=== PATIENT | female | born 1955 | race Caucasian/White ===

== ENCOUNTER 2016-08-09 09:44 | Day surgery (SDC) | payer MEDICARE, OTHER ==
[~2016-08-09 09:44] MED LIST: DIPRIVAN 200 MG/20 ML IV ONE; Kenalog-40 IM ONE; Sensorcaine 0.25% 10 ML IJ ONE
[2016-08-09] MEDS ORDERED: Lactated Ringers 1,000 ML IV SCH (10:30)
[2016-08-09 11:02] VITALS: BP 133/84; PULSE 64; O2SAT 98
--- NOTE | 2016-08-09 14:06 | XRAY ---
Indication: Right L3-L5 medial branch block. Intraoperative fluoroscopy was provided for 8 seconds. A single digital spot image submitted for interpretation demonstrates 4 posterior spinal needles with the tips projecting just lateral to the right L3-S1 facets. Correlate with intraoperative findings/report.
--- NOTE | 2016-08-09 14:55 | XRAY ---
8 seconds of fluoroscopy time in surgery for right MBB L3-5.
== END 2016-08-09 12:30 | disposition home or self-care (01) ==
LOC: SDC-PAIN 09:44
PROVIDERS: ATTEND Pain Medicine Interventional Pain Medicine
DX: M47.816 Spondylosis without myelopathy or radiculopathy, lumbar region (principal); M46.1 Sacroiliitis, not elsewhere classified; M48.06 Spinal stenosis, lumbar region; M51.36 Other intervertebral disc degeneration, lumbar region; Z79.891 Long term (current) use of opiate analgesic
CPT/HCPCS: 01936; 64493; 64494; 64495; 72020; 77003; J2704; J3301

== ENCOUNTER 2016-11-15 12:42 | Day surgery (SDC) | payer MEDICARE, OTHER ==
[2012-04-05 15:46] VITALS: BP 100/51
[~2016-11-15 12:42] MED LIST changes: +Lactated Ringers 1,000 ML IV ONE
--- NOTE | 2016-11-15 17:19 | XRAY ---
20 seconds fluoroscopy time in surgery for right side L3-5 MBB.
--- NOTE | 2016-11-17 02:44 | XRAY ---
Indication: Right L2-L5 MBB. Intraoperative fluoroscopy was provided for 20 seconds. Single digital spot image submitted for interpretation demonstrates 4 posterior spinal needles with the tips projected over the expected course of the right L2-L5 nerve roots. Correlate with intraoperative findings/report. There is also moderate rotary levoscoliosis within the lower lumbar spine at L4-L5.
== END 2016-11-15 14:30 | disposition home or self-care (01) ==
LOC: SDC-PAIN 12:42
PROVIDERS: ATTEND Pain Medicine Interventional Pain Medicine
DX: M51.36 Other intervertebral disc degeneration, lumbar region (principal); M48.06 Spinal stenosis, lumbar region; M46.1 Sacroiliitis, not elsewhere classified; M47.816 Spondylosis without myelopathy or radiculopathy, lumbar region; Z79.891 Long term (current) use of opiate analgesic
CPT/HCPCS: 64493; 64494; 64495; 72020; 77003; J2704; J3301

== ENCOUNTER 2016-12-15 05:57 | Day surgery (SDC) | payer MEDICARE, OTHER ==
[2016-12-15] MEDS ORDERED: Lactated Ringers 1,000 ML IV ONE (07:14)
[2016-12-15] MEDS ORDERED: Lactated Ringers 1,000 ML IV SCH (07:30)
[2016-12-15] MEDS ORDERED: DIPRIVAN 200 MG/20 ML IV ONE (09:30)
[2016-12-15] MEDS ORDERED: Ketamine HCl 50 MG/ML IV ONE (09:30)
--- NOTE | 2016-12-15 09:39 | OP ---
SURGERY DATE/TIME: 12/15/2016 0750 PREOPERATIVE DIAGNOSIS: Chronic diarrhea. POSTOPERATIVE DIAGNOSES: 1) Gastric polyp. 2) Moderate gastritis. 3) Sigmoid diverticulosis. PROCEDURES: 1) EGD with biopsy. 2) Colonoscopy. SURGEON: Dr. Benítez. ANESTHESIA: MAC. Medications given by anesthesia department. HISTORY: The patient is a 61 year-old white female presenting now for complaints of one month worth of diarrhea. The patient reports having taken new medication for arthritis and having had some epigastric pain as well. The patient is felt to need to have endoscopic evaluation. She was appraised of the risks of the procedure including the risk of perforation, phlebitis, untoward reaction to medication, bleeding and missed lesions. The patient verbalized her understanding and desired to have the procedure performed. DESCRIPTION OF PROCEDURE: The patient was given the medications by the anesthesia department. She had continuous pulse oximetry, ECG monitoring, intermittent blood pressure monitoring, and tidal CO2 monitoring during the examination. She was placed in the left lateral decubitus position. A bite block was placed and the flexible Olympus gastroscope was used to intubate the oropharynx. The esophagus was easily entered which appeared to be normal throughout its length. The stomach was entered where normal gastric rugal folds were seen and these distended nicely with insufflation of air. There was noted to be small gastric polyps. These were biopsied to rule out any neoplastic change. The scope was passed along the greater curvature of the stomach to the antrum which was also biopsied to rule out the presence of Helicobacter pylori-type organisms. The pylorus is encountered and intubated. The duodenum inspected and found to be normal. The scope is withdrawn towards the stomach. Again, a retroflex view was obtained of the lesser curvature, fundus and cardia regions of the stomach. The scope was then removed from the patient. Next, a digital rectal examination was performed and revealed normal anal sphincter tone and no masses. The flexible Olympus pediatric colonoscope was used to intubate the rectum. A view of the colon was developed sequentially to the cecum. Upon insertion and withdrawal, including a retroflex view in the rectum, there was noted sigmoid diverticula which were mild to moderate in nature and no other mucosal lesions being encountered. The scope was removed from the patient who tolerated the procedure well and was sent back to OP recovery in good condition. The prep was noted to be fair.
[2016-12-15 10:02] VITALS: O2SAT 97
[2016-12-15 10:04] VITALS: BP 142/91; PULSE 71
== END 2016-12-15 09:45 | disposition home or self-care (01) ==
LOC: SDC 05:57
PROVIDERS: ATTEND Family Medicine
PROC: 0DB68ZX Excision of Stomach, Via Natural or Artificial Opening Endoscopic, Diagnostic (ICD-10-PCS; principal; 2016-12-15)
PROC: 0DB78ZX Excision of Stomach, Pylorus, Via Natural or Artificial Opening Endoscopic, Diagnostic (ICD-10-PCS; 2016-12-15)
DX: K31.7 Polyp of stomach and duodenum (principal); K29.70 Gastritis, unspecified, without bleeding; K57.30 Diverticulosis of large intestine without perforation or abscess without bleeding
CPT/HCPCS: 00740; 00810; 36415; 88305; J2704

== ENCOUNTER 2019-04-14 05:54 | Day surgery (SDC) | payer MEDICARE, OTHER ==
[2019-04-14] MEDS ORDERED: Lactated Ringers 1,000 ML IV SCH (07:00)
[2019-04-14] MEDS ORDERED: DIPRIVAN 200 MG/20 ML IV ONE ×2 (08:06→08:07)
[2019-04-14] MEDS ORDERED: Ketamine HCl 50 MG/ML ONE (08:07)
[2019-04-14] MEDS ORDERED: Lactated Ringers 1,000 ML IV ONE (08:13)
[2019-04-14 09:21] VITALS: BP 158/87; PULSE 66; O2SAT 99
--- NOTE | 2019-04-14 12:58 | OP ---
SURGERY DATE/TIME: 04/14/2019 0750 PREOPERATIVE DIAGNOSIS: History of colon polyps. POSTOPERATIVE DIAGNOSIS: Sigmoid diverticulosis otherwise normal colon. PROCEDURE: Colonoscopy. SURGEON: Dr. Benítez. ANESTHESIA: MAC. Medications given by anesthesia department. HISTORY: The patient is a 63 year-old white female presents now for repeat colonoscopy. Previous history of polyps. The patient was reappraised of the risks of the procedure including the risk of perforation, phlebitis, untoward reaction to medication, bleeding and missed lesions. The patient verbalized her understanding and desired to have the procedure performed. DESCRIPTION OF PROCEDURE: The patient was given the medications by the anesthesia department. She had continuous pulse oximetry, ECG monitoring, intermittent blood pressure monitoring and tidal CO2 monitoring during the examination. She was placed in the left lateral decubitus position. A digital rectal examination was performed and revealed normal anal sphincter tone and no masses. The flexible Olympus pediatric colonoscope was used to intubate the rectum. A view of the colon was developed sequentially to the cecum. Upon insertion and withdrawal, including a retroflex view in the rectum, there was noted to be sigmoid diverticulosis otherwise no mucosal lesions were encountered. The scope was removed from the patient who tolerated the procedure well and was sent back to OP recovery in good condition. The prep was noted to be fair to good.
== END 2019-04-14 09:30 | disposition home or self-care (01) ==
LOC: SDC 05:54
PROVIDERS: ATTEND Family Medicine
DX: Z09 Encounter for follow-up examination after completed treatment for conditions other than malignant neoplasm (principal); Z86.010 Personal history of colon polyps; K57.30 Diverticulosis of large intestine without perforation or abscess without bleeding
CPT/HCPCS: J2704

== ENCOUNTER 2019-05-24 17:18 | Emergency (ER) | payer MEDICARE, OTHER ==
[2019-05-24] MEDS ORDERED: ELIQUIS 2.5 MG TABLET PO STA (17:39)
--- NOTE | 2019-05-24 17:39 | ERPHSYRPT ---
- History of Present Illness Time Seen by Provider: 05/24/19 17:35 Source: patient Physician History: patient was told that she has pulmonary embolism by CT scan. She was scheduled for laparoscopic intervention but due to abnormal CT scan it was cancelled so She got worried and came to ER. C/o Mild acid reflux Timing/Duration: today Associated Symptoms: denies symptoms Allergies/Adverse Reactions: ceftriaxone sodium [From Rocephin] Allergy (Severe, Verified 12/15/16 06:30) resp arrest Cephalosporins Allergy (Severe, Verified 12/15/16 06:30) resp arrest latex Allergy (Verified 12/15/16 06:30) Home Medications: Montelukast Sodium [Singulair] 10 mg PO DAILY 05/23/15 [History] Potassium Chloride 10 Meq Tab* [Klor Con 10 MEQ] 10 meq PO DAILY 05/23/15 [ History] Albuterol 8 gm Mdi Hfa [Ventolin Hfa MDI] 2 puffs IH UD 05/18/16 [History] Cyanocobalamin 1000 Mcg/ml [Cyanocobalamin B-12 1000 MCG/ML] 1,000 mcg SQ UD 05/18/16 [History] Estrogen,Con/M-Progest Acet [Prempro 0.625-5 mg Tablet] 0.625 mg PO DAILY [History] Levocetirizine Dihydrochloride 5 mg PO UD 05/18/16 [History] Meclizine HCl 25 mg [Antivert 25 mg] 25 mg PO UD 05/18/16 [History] PANTOPRAZOLE 40 mg Tablet [Protonix 40MG Tablet] 40 mg PO DAILY 05/18/16 [ History] Lisinopril 20 mg [Zestril 20 MG] 20 mg PO DAILY 12/13/16 [History] Alendronate Sodium 70 mg [Fosamax 70 MG] 70 mg PO WEEKLY 04/10/19 [History ] Benzonatate [Tessalon Perle] 100 mg PO DAILY 04/10/19 [History] Cromolyn Sodium 10 ml OP QID 04/10/19 [History] Desoximetasone 15 gm TP BID 04/10/19 [History] Dextromethorphan Polistirex [Delsym] 30 mg PO BIDPRN PRN 04/10/19 [History] Diclofenac Sodium Gel [Voltaren GEL] 100 gm TP QID 04/10/19 [History] Diphenoxylate HCl/Atropine [Lomotil 2.5-0.025 mg Tablet] 1 each PO QIDPRN PRN [History] Fluticasone/Vilanterol [Breo Ellipta 200-25 Mcg INH] 1 each IH DAILY 04/10/19 [ History] Furosemide 40 mg [Lasix 40 MG] 40 mg PO DAILY 04/10/19 [History] Gabapentin [Neurontin] 300 mg PO TID 04/10/19 [History] Hydrocodone Bit/Acetaminophen [Hydrocodon-Acetaminophn 10-325] 1 each PO Q4HPRN PRN 04/10/19 [History] Lactase [Lactaid Fast Act] 9,000 unit PO AC 04/10/19 [History] Lidocaine [Lidoderm] 1 each TP UD 04/10/19 [History] Meloxicam [Mobic] 15 mg PO DAILY 04/10/19 [History] Mometasone Furoate [Nasonex] 17 gm NS DAILY 04/10/19 [History] Multivitamin with Iron [Multivitamins with Iron] 1 each PO DAILY 04/10/19 [ History] Multivitamin/Iron/Folic Acid [Cerovite Advanced Form Tab] 1 each PO DAILY [History] Mupirocin [Bactroban OINTMENT] 15 gm TP TID 04/10/19 [History] Ondansetron [Ondansetron Odt] 4 mg PO Q8HPRN PRN 04/10/19 [History] Pravastatin Sodium [Pravachol] 40 mg PO DAILY 04/10/19 [History] Rizatriptan Benzoate [Rizatriptan] 10 mg PO UD 04/10/19 [History] Tizanidine HCl 4 mg [Zanaflex 4 MG] 4 mg PO TID 04/10/19 [History] Topiramate 25 mg [Topamax 25 MG] 25 mg PO UD 04/10/19 [History] Triamcinolone 0.025% Cream [Triamcinolone Acetonide] 453.6 gm TP BID 04/10/19 [ History] Venlafaxine HCl ER 75 mg [Effexor XR 75 MG] 112.5 mg PO DAILY 04/10/19 [ History] Hx Tetanus, Diphtheria Vaccination/Date Given: Yes Hx Influenza Vaccination/Date Given: Yes Hx Pneumococcal Vaccination/Date Given: No - Review of Systems Constitutional: No Fever, No Chills Eyes: No Symptoms Ears, Nose, & Throat: No Symptoms Respiratory: No Cough, No Dyspnea Cardiac: No Chest Pain, No Edema, No Syncope Abdominal/Gastrointestinal: No Abdominal Pain, No Nausea, No Vomiting, No Diarrhea Genitourinary Symptoms: No Dysuria Musculoskeletal: No Back Pain, No Neck Pain Skin: No Rash Neurological: No Dizziness, No Focal Weakness, No Sensory Changes Psychological: No Symptoms Endocrine: No Symptoms All Other Systems: Reviewed and Negative - Past Medical History Pertinent Past Medical History: Yes Neurological History: No Pertinent History ENT History: No Pertinent History Cardiac History: Hypertension Respiratory History: Asthma, Bronchitis Endocrine Medical History: No Pertinent History Musculoskeletal History: Arthritis, Rheumatoid Arthritis GI Medical History: GERD History: No Pertinent History Psycho-Social History: Other Female Reproductive Disorders: No Pertinent History Other Medical History: pt states she has PTSD - Past Surgical History Past Surgical History: Yes Neuro Surgical History: No Pertinent History Cardiac: No Pertinent History Respiratory: Other Gastrointestinal: No Pertinent History Genitourinary: No Pertinent History Musculoskeletal: Other Female Surgical History: Tubal Ligation Other Surgical History: pt has had bilateral foot correction surgery. rib surgery and skin cancer removal. - Social History Smoking Status: Never smoker Exposure to second hand smoke: No Drug Use: none Patient Lives Alone: No - Nursing Vital Signs Nursing Vital Signs: Initial Vital Signs Temperature 98.1 F 05/24/19 17:27 Pulse Rate 69 05/24/19 17:27 Respiratory Rate 20 05/24/19 17:27 Blood Pressure 123/81 05/24/19 17:27 O2 Sat by Pulse Oximetry 97 05/24/19 17:27 Pain Scale Pain Intensity 3 - Physical Exam General Appearance: no apparent distress, alert Eye Exam: PERRL/EOMI, eyes nml inspection Ears, Nose, Throat Exam: normal ENT inspection, TMs normal, pharynx normal, moist mucous membranes Neck Exam: normal inspection, non-tender, supple, full range of motion Respiratory Exam: normal breath sounds, lungs clear, No respiratory distress Cardiovascular Exam: regular rate/rhythm, normal heart sounds, normal peripheral pulses Gastrointestinal/Abdomen Exam: soft, normal bowel sounds, tenderness ( epigastric area), No mass Back Exam: normal inspection, normal range of motion, No CVA tenderness, No vertebral tenderness Extremity Exam: normal inspection, normal range of motion, pelvis stable Neurologic Exam: alert, oriented x 3, cooperative, normal mood/affect, nml cerebellar function, nml station & gait, sensation nml, No motor deficits Skin Exam: normal color, warm, dry, No rash Lymphatic Exam: No adenopathy - Course Nursing assessment & vital signs reviewed: Yes Ordered Tests: Medication Summary Generic Name Dose Route Start Last Admin Trade Name Freq PRN Reason Stop Dose Admin Pantoprazole Sodium 40 mg 05/24/19 17:46 Protonix 40mg Tablet PO 05/24/19 17:47 STAT ONE Discontinued Medications Generic Name Dose Route Start Last Admin Trade Name Freq PRN Reason Stop Dose Admin Apixaban 5 mg 05/24/19 17:39 Eliquis 2.5 Mg Tablet PO 05/24/19 17:40 BID STA Lab/Rad Data: CT chest Impression: 1. Although this study was not performed for pulmonary emboli, there appears to be a small round defect within the proximal right lower lobe pulmonary artery as well as some additional subtle defects within the right lower lobe pulmonary arteries suggestive of pulmonary emboli. 2. Prominent irregular, relatively oval shaped, complex mass occupying much of the right lobe of the thyroid gland. Further evaluation with a thyroid ultrasound is recommended. 3. Old healed granulomatous disease. No suspicious soft tissue lung nodularity or infiltrates are noted. 4. Several old healed fracture deformities are seen involving the anterior lateral aspect of the right mid rib cage. These are evidently posttraumatic in etiology. Correlate clinically. 5. Moderate upper lumbar rotary dextroscoliosis centered at L2. Some other skeletal findings are seen, as discussed above. Reported by: JULISA SYED - Progress Progress: improved Counseled pt/family regarding: diagnosis, need for follow-up, rad results - Departure Departure Disposition: Home Clinical Impression: Pulmonary embolism Qualifiers: Pulmonary embolism type: unspecified Chronicity: unspecified Acute cor pulmonale presence: without acute cor pulmonale Qualified Code(s): I26.99 - Other pulmonary embolism without acute cor pulmonale GERD (gastroesophageal reflux disease) Qualifiers: Esophagitis presence: with esophagitis Qualified Code(s): K21.0 - Gastro- esophageal reflux disease with esophagitis Condition: Stable Critical Care Time: Yes Critical Care Time(excluding separately billable procedures): Critical 30-74 mins Referrals: KIAN PEDRO [Primary Care Provider] - Instructions: Pulmonary Embolism (Blood Clot in the Lungs), Acid Reflux ( Gastroesophageal Reflux Disease), Adult (DC) Additional Instructions: Discharge/Care Plan PEGGY SYED was seen on 05/24/19 in the Emergency Room. The patient was counseled regarding Diagnosis,Lab results, Imaging studies, need for follow up and when to return to the Emergency Room. Prescriptions given: Discharge Note I have spoken with the patient and/or caregivers. I have explained the patient' s condition, diagnosis and treatment plan based on the information available to me at this time. I have answered the patient's and/or caregiver's questions and addressed any concerns. The patient and/or caregivers have as good understanding of the patient's diagnosis, condition and treatment plan as can be expected at this point. The vital signs have been stable. The patient's condition is stable and appropriate for discharge from the emergency department. The patient will pursue further outpatient evaluation with the primary care physician or other designated or consulting physician as outlined in the discharge instructions. The patient and/or caregivers are agreeable to this plan of care and follow-up instructions have been explained in detail. The patient and/or caregivers have received these instruction. The patient/and or caregivers are aware that any significant change in condition or worsening of symptoms should prompt an immediate return to this or the closest emergency department or call 911. PEGGY SYED was seen on 05/24/19 n the Emergency Room. At that time you were treated for an emergent condition, during your visit Laboratory, Radiology and/or other procedures may have been ordered. It is very important that you follow-up with your Primary Care Physician KIAN PEDRO within the next 24-48 hours to review your Emergency Room visit and the final results of testing that was ordered. Some test results such as Urine Cultures, Blood Cultures, and other cultures if ordered will not be finalized for 24-48 hours. If you do not have a Primary Care Provider please call the medical records department at [phone] ext [phone] to obtain a copy of your results or you may sign into our patient portal to obtain these results by visiting us @ [email or web address] and completing the following steps: 1. Click on the Patient Portal link 2. Click the Patient Self Enrollment Link to complete the enrollment form and entering your 3. Once the enrollment form is completed you will receive an email with a temporary ID and password at the email address you provided. 4. Next choose a user name and password. Your user name must be at least 4 characters long and your password must be at least 4 characters long. 5. Choose a security question from the list and provide your answer to the question. If you already have signed into the Health Portal you may access your Health Care Information 08/01 by the following steps: 1. Login to our website @ [email or web address] 2. Enter your original user name and password. FAQS The [facility] Health Portal is an online tool that contains your Lab Results, Radiology Reports, Visit History, Discharge Instructions and Health Summary Lab and Radiology Results will not be available for 72 hours on the portal. The Portal is a secure site, passwords are encryted and URLs are re-written so they cannot be copied and pasted. You and authorized family members are the only ones who can access your Portal. Also there is a timeout feature that protects your information if you leave the Portal page open. If you have technical difficulty please use the Contact Us link on the page this will allow you to submit any questions you have regarding the Portal or you may contact the Medical Record Department at [phone] ext [phone]. Prescriptions: Apixaban [Eliquis] 5 mg PO BID #60 tablet PANTOPRAZOLE 40 mg Tablet [Protonix 40MG Tablet] 40 mg PO QPM #30 tab
[2019-05-24] MEDS ORDERED: Protonix 40MG Tablet PO ONE (17:46)
[2019-05-24] MEDS ORDERED: Protonix 40MG Tablet ONE (17:55)
[2019-05-24 17:57] VITALS: BP 125/82; PULSE 72; O2SAT 98
== END 2019-05-24 18:08 | disposition home or self-care (01) ==
LOC: ED 17:18
DX: I26.99 Other pulmonary embolism without acute cor pulmonale (principal); K21.0 Gastro-esophageal reflux disease with esophagitis; Z79.899 Other long term (current) drug therapy
CPT/HCPCS: 99283; 99291; A9270-GY

== ENCOUNTER 2019-07-23 16:43 | Inpatient (IN) | payer MEDICARE, OTHER ==
--- NOTE | 2019-07-23 16:50 | ERPHSYRPT ---
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 She has had worsening abdominal cramping and liquid black stools. Patient was given a prescription of Percocet which she has not been taking. She was also told to take 800 mg of ibuprofen 3-4 times a day. She has been taking this. She has been receiving Lovenox subcutaneous injections twice a day. Presents to the emergency room with abdominal pain and several, uncontrollable liquid black bowel movements. Has had associated vomiting as well Timing/Duration: day(s) (2) Quality: cramping Abdominal Pain Onset Location: generalized abdomen Pain Radiation: no radiation Severity of Pain-Max: moderate Severity of Pain-Current: moderate Modifying Factors: Improves With: vomiting Associated Symptoms: diarrhea, nausea, vomiting Previous symptoms: no prior history Allergies/Adverse Reactions: ceftriaxone sodium [From Rocephin] Allergy (Severe, Verified 12/15/16 06:30) resp arrest Cephalosporins Allergy (Severe, Verified 12/15/16 06:30) resp arrest latex Allergy (Verified 12/15/16 06:30) Home Medications: Montelukast Sodium [Singulair] 10 mg PO DAILY 05/23/15 [History] Albuterol 8 gm Mdi Hfa [Ventolin Hfa MDI] 2 puffs IH UD 05/18/16 [History] Cyanocobalamin 1000 Mcg/ml [Cyanocobalamin B-12 1000 MCG/ML] 1,000 mcg SQ UD 05/18/16 [History] Estrogen,Con/M-Progest Acet [Prempro 0.625-5 mg Tablet] 0.625 mg PO DAILY [History] Levocetirizine Dihydrochloride 5 mg PO UD 05/18/16 [History] Meclizine HCl 25 mg [Antivert 25 mg] 25 mg PO UD 05/18/16 [History] PANTOPRAZOLE 40 mg Tablet [Protonix 40MG Tablet] 40 mg PO DAILY 05/18/16 [ History] Lisinopril 20 mg [Zestril 20 MG] 20 mg PO DAILY 12/13/16 [History] Alendronate Sodium 70 mg [Fosamax 70 MG] 70 mg PO WEEKLY 04/10/19 [History ] Benzonatate [Tessalon Perle] 100 mg PO DAILY 04/10/19 [History] Cromolyn Sodium 10 ml OP QID 04/10/19 [History] Desoximetasone 15 gm TP BID 04/10/19 [History] Dextromethorphan Polistirex [Delsym] 30 mg PO BIDPRN PRN 04/10/19 [History] Diclofenac Sodium Gel [Voltaren GEL] 100 gm TP QID 04/10/19 [History] Diphenoxylate HCl/Atropine [Lomotil 2.5-0.025 mg Tablet] 1 each PO QIDPRN PRN [History] Fluticasone/Vilanterol [Breo Ellipta 200-25 Mcg INH] 1 each IH DAILY 04/10/19 [ History] Furosemide 40 mg [Lasix 40 MG] 40 mg PO DAILY 04/10/19 [History] Gabapentin [Neurontin] 300 mg PO TID 04/10/19 [History] Hydrocodone Bit/Acetaminophen [Hydrocodon-Acetaminophn 10-325] 1 each PO Q4HPRN PRN 04/10/19 [History] Lactase [Lactaid Fast Act] 9,000 unit PO AC 04/10/19 [History] Lidocaine [Lidoderm] 1 each TP UD 04/10/19 [History] Meloxicam [Mobic] 15 mg PO DAILY 04/10/19 [History] Mometasone Furoate [Nasonex] 17 gm NS DAILY 04/10/19 [History] Multivitamin with Iron [Multivitamins with Iron] 1 each PO DAILY 04/10/19 [ History] Multivitamin/Iron/Folic Acid [Cerovite Advanced Form Tab] 1 each PO DAILY [History] Mupirocin [Bactroban OINTMENT] 15 gm TP TID 04/10/19 [History] Ondansetron [Ondansetron Odt] 4 mg PO Q8HPRN PRN 04/10/19 [History] Pravastatin Sodium [Pravachol] 40 mg PO DAILY 04/10/19 [History] Rizatriptan Benzoate [Rizatriptan] 10 mg PO UD 04/10/19 [History] Tizanidine HCl 4 mg [Zanaflex 4 MG] 4 mg PO TID 04/10/19 [History] Topiramate 25 mg [Topamax 25 MG] 25 mg PO UD 04/10/19 [History] Triamcinolone 0.025% Cream [Triamcinolone Acetonide] 453.6 gm TP BID 04/10/19 [ History] Venlafaxine HCl ER 75 mg [Effexor XR 75 MG] 112.5 mg PO DAILY 04/10/19 [ History] Hx Tetanus, Diphtheria Vaccination/Date Given: Yes Hx Influenza Vaccination/Date Given: Yes Hx Pneumococcal Vaccination/Date Given: No - Review of Systems Constitutional: No Symptoms Eyes: No Symptoms Ears, Nose, & Throat: No Symptoms Respiratory: No Symptoms Cardiac: No Symptoms Abdominal/Gastrointestinal: Abdominal Pain, Nausea, Vomiting, Diarrhea Genitourinary Symptoms: No Symptoms Musculoskeletal: No Symptoms Skin: No Symptoms Neurological: No Symptoms Psychological: No Symptoms Endocrine: No Symptoms Hematologic/Lymphatic: No Symptoms Immunological/Allergic: No Symptoms All Other Systems: Reviewed and Negative - Past Medical History Pertinent Past Medical History: Yes Neurological History: No Pertinent History ENT History: No Pertinent History Cardiac History: Hypertension Respiratory History: Asthma, Bronchitis Endocrine Medical History: No Pertinent History Musculoskeletal History: Arthritis, Rheumatoid Arthritis GI Medical History: GERD History: No Pertinent History Psycho-Social History: Other Female Reproductive Disorders: No Pertinent History Other Medical History: pt states she has PTSD - Past Surgical History Past Surgical History: Yes Neuro Surgical History: No Pertinent History Cardiac: No Pertinent History Respiratory: Other Gastrointestinal: No Pertinent History Genitourinary: No Pertinent History Musculoskeletal: Other Female Surgical History: Tubal Ligation Other Surgical History: pt has had bilateral foot correction surgery. rib surgery and skin cancer removal. - Social History Smoking Status: Never smoker Exposure to second hand smoke: No Drug Use: none Patient Lives Alone: No - Nursing Vital Signs Nursing Vital Signs: Initial Vital Signs Temperature 98.1 F 02/05/20 16:43 Pulse Rate 78 07/23/19 16:43 Respiratory Rate 22 07/23/19 16:43 Blood Pressure 138/94 07/23/19 16:43 O2 Sat by Pulse Oximetry 100 07/23/19 16:43 Pain Scale Pain Intensity 2 - Physical Exam General Appearance: mild distress, alert, anxiety Eye Exam: PERRL/EOMI, eyes nml inspection Ears, Nose, Throat Exam: normal ENT inspection, moist mucous membranes Neck Exam: normal inspection, non-tender, supple, full range of motion Respiratory Exam: normal breath sounds, lungs clear, airway intact, No chest tenderness, No respiratory distress Cardiovascular Exam: regular rate/rhythm, normal heart sounds, normal peripheral pulses Gastrointestinal/Abdomen Exam: soft, normal bowel sounds, tenderness, guarding, other (Midline abdominal incision is intact with maira) Pelvic Exam: not done Rectal Exam: not done Back Exam: normal inspection, normal range of motion, No CVA tenderness Extremity Exam: normal inspection, normal range of motion, pelvis stable Neurologic Exam: alert, oriented x 3, cooperative, sulphate tester II-XII nml as tested Skin Exam: normal color, warm, dry Lymphatic Exam: No adenopathy SpO2 Interpretation: normal O2 Delivery: Room Air - Course Nursing assessment & vital signs reviewed: Yes Ordered Tests: Active Orders 24 hr Category Date Time Status IV Insertion STAT Care 07/23/19 17:35 Active ABDOMEN AND PELVIS W/0 CONTRAS [CT] Stat Exams 07/23/19 17:35 Taken AMYLASE Stat Lab 07/23/19 17:00 Completed CBC W DIFF Stat Lab 07/23/19 17:00 Completed CMP Stat Lab 07/23/19 17:00 Completed LIPASE Stat Lab 07/23/19 17:00 Completed Lactic Acid Stat Lab 07/23/19 17:35 Completed PROTIME WITH INR Stat Lab 07/23/19 17:00 Completed Transfer Order Routine Transfer 07/23/19 Ordered Medication Summary Discontinued Medications Generic Name Dose Route Start Last Admin Trade Name Freq PRN Reason Stop Dose Admin Hydromorphone HCl 1 mg 07/23/19 17:35 07/23/19 17:59 Hydromorphone 1 Mg/Ml Ampule IV 07/23/19 17:36 1 mg STAT ONE Administration Hydromorphone HCl Confirm 07/23/19 17:52 Hydromorphone 1 Mg/Ml Ampule Administered 07/23/19 17:53 Dose 1 mg .ROUTE .STK-MED ONE Sodium Chloride 1,000 mls @ 999 mls/hr 07/23/19 17:35 07/23/19 19:18 Sodium Chloride 0.9% 1000 Ml IV 07/23/19 18:35 Infused .Q1H1M STA Infusion Sodium Chloride Confirm 07/23/19 17:52 Sodium Chloride 0.9% 1000 Ml Administered 07/23/19 17:53 Dose 1,000 mls @ ud .ROUTE .STK-MED ONE Sodium Chloride 1,000 mls @ 999 mls/hr 07/23/19 20:42 07/23/19 20:54 Sodium Chloride 0.9% 1000 Ml IV 07/23/19 21:42 999 mls/hr .Q1H1M STA Administration Sodium Chloride Confirm 07/23/19 20:49 Sodium Chloride 0.9% 1000 Ml Administered 07/23/19 20:50 Dose 1,000 mls @ ud .ROUTE .STK-MED ONE Ondansetron HCl 4 mg 07/23/19 17:35 07/23/19 17:59 Zofran 4 Mg/2 Ml Vial IV 07/23/19 17:36 4 mg STAT ONE Administration Ondansetron HCl Confirm 07/23/19 17:51 Zofran 4 Mg/2 Ml Vial Administered 07/23/19 17:52 Dose 4 mg .ROUTE .STK-MED ONE Pantoprazole Sodium 40 mg 07/23/19 17:35 07/23/19 17:59 Protonix 40 Mg Iv IV 07/23/19 17:36 40 mg STAT ONE Administration Pantoprazole Sodium Confirm 07/23/19 17:51 Protonix 40 Mg Iv Administered 07/23/19 17:52 Dose 40 mg IV .STK-MED ONE Promethazine HCl 12.5 mg 07/23/19 20:43 07/23/19 20:53 Phenergan 25 Mg Inj IM 07/23/19 20:44 12.5 mg STAT ONE Administration Promethazine HCl Confirm 07/23/19 20:49 Phenergan 25 Mg Inj Administered 07/23/19 20:50 Dose 25 mg .ROUTE .STK-MED ONE Lab/Rad Data: Laboratory Result Diagrams 07/23/19 17:00 07/23/19 17:00 Laboratory Results 07/23/19 07/23/19 07/23/19 Range/Units 17:35 17:00 17:00 WBC (4.0-10.5) K/mm3 RBC (4.1-5.4) M/mm3 Hgb (12.0-16.0) gm/dl Hct (35-47) % MCV (78-100) fl MCH (26-32) pg MCHC (32-36) g/dl RDW (11.5-14.0) % Plt Count (150-450) K/mm3 MPV (7.5-11.0) fl Gran % (36.0-66.0) % Eos # (Auto) (0-0.5) Absolute Lymphs (auto) (1.0-4.6) Absolute Monos (auto) (0.0-1.3) Lymphocytes % (24.0-44.0) % Monocytes % (0.0-12.0) % Eosinophils % (0.00-5.0) % Basophils % (0.0-0.4) % Absolute Granulocytes (1.4-6.9) Basophils # (0-0.4) PT 14.2 H (9.95-12.35) SECONDS INR 1.25 (0.8-3.0) Sodium 137 (137-145) mmol/L Potassium 3.3 L (3.5-5.1) mmol/L Chloride 103 (98-107) mmol/L Carbon Dioxide 25 (22-30) mmol/L Anion Gap 11.8 (5-15) MEQ/L BUN 10 (7-17) mg/dL Creatinine 0.60 (0.52-1.04) mg/dL Estimated GFR > 60.0 ML/MIN Glucose 109 H (74-106) mg/dL Lactic Acid 1.2 (0.4-2.0) Calcium 8.8 (8.4-10.2) mg/dL Total Bilirubin 0.50 (0.2-1.3) mg/dL AST 18 (14-36) U/L ALT 18 (0-35) U/L Alkaline Phosphatase 65 (38-126) U/L Serum Total Protein 6.2 L (6.3-8.2) g/dL Albumin 3.2 L (3.5-5.0) g/dL Amylase 49 (30-110) U/L Lipase 158 (23-300) U/L 07/23/19 Range/Units 17:00 WBC 7.7 (4.0-10.5) K/mm3 RBC 2.68 L (4.1-5.4) M/mm3 Hgb 8.1 L (12.0-16.0) gm/dl Hct 26.2 L (35-47) % MCV 97.8 (78-100) fl MCH 30.2 (26-32) pg MCHC 30.9 L (32-36) g/dl RDW 15.1 H (11.5-14.0) % Plt Count 382 (150-450) K/mm3 MPV 9.7 (7.5-11.0) fl Gran % 63.8 (36.0-66.0) % Eos # (Auto) 0.30 (0-0.5) Absolute Lymphs (auto) 1.39 (1.0-4.6) Absolute Monos (auto) 1.08 (0.0-1.3) Lymphocytes % 18.1 L (24.0-44.0) % Monocytes % 14.1 H (0.0-12.0) % Eosinophils % 3.9 (0.00-5.0) % Basophils % 0.1 (0.0-0.4) % Absolute Granulocytes 4.90 (1.4-6.9) Basophils # 0.01 (0-0.4) PT (9.95-12.35) SECONDS INR (0.8-3.0) Sodium (137-145) mmol/L Potassium (3.5-5.1) mmol/L Chloride (98-107) mmol/L Carbon Dioxide (22-30) mmol/L Anion Gap (5-15) MEQ/L BUN (7-17) mg/dL Creatinine (0.52-1.04) mg/dL Estimated GFR ML/MIN Glucose (74-106) mg/dL Lactic Acid (0.4-2.0) Calcium (8.4-10.2) mg/dL Total Bilirubin (0.2-1.3) mg/dL AST (14-36) U/L ALT (0-35) U/L Alkaline Phosphatase (38-126) U/L Serum Total Protein (6.3-8.2) g/dL Albumin (3.5-5.0) g/dL Amylase (30-110) U/L Lipase (23-300) U/L - Progress Progress: improved Progress Note: 07/23/19 20:41 Patient states her abdominal pain has improved. However, she still has nausea. 07/23/19 21:53 The the patient's differential diagnosis includes postoperative ileus, postoperative bowel obstruction, intra-abdominal abscess or postoperative fluid collection, enteritis, C. Difficile colitis, The CAT scan of the abdomen pelvis reveals postoperative ileus versus enteritis , tiny pelvic free fluid, bladder air but there was a recent Jimenez catheterization performed and this may be the cause of that. We called Dr. Haider who is covering for Dr. Benítez twice between 930 and 9:40 PM and are awaiting his call back 07/23/19 22:16 I reexamine the patient. Her nausea and abdominal pain have improved. Still has not had a bowel movement of any type. Dates she is now thirsty and hungry. I contacted Dr. Haider who is covering for Dr. Benítez. I reviewed the patient 's history, condition, CAT scan report, laboratory data and urinalysis with Dr. Haider. Dr. Haider agrees to place the patient in observation. Hold on the antibiotic therapy until we obtain a stool sample. By the patient with IV hydration, antiemetics and pain control. We will repeat laboratory data in the morning. Obtain a type and screen Counseled pt/family regarding: lab results, diagnosis, rad results - Departure Departure Disposition: Home, Observation Clinical Impression: Diarrhea, Postoperative abdominal pain, Anemia, Vomiting Condition: Stable Critical Care Time: No Referrals: KIAN PEDRO [Primary Care Provider] -
[2019-07-23] MEDS ORDERED: Hydromorphone 1 mg/ml Ampule IV ONE (17:35)
[2019-07-23] MEDS ORDERED: PROTONIX 40 MG IV IV ONE ×2 (17:35→17:51)
[2019-07-23] MEDS ORDERED: Zofran 4 MG/2 ML VIAL IV ONE (17:35)
[2019-07-23] MEDS ORDERED: Sodium Chloride 0.9% 1000 ML 1,000 ML IV STA ×2 (17:35→20:42)
[2019-07-23 17:42] LABS: BASOPHIL % 0.1 % (0.0-0.4); Basophil (Absolute #) 0.01 (0-0.4); Eosinophil % 3.9 % (0.00-5.0); Hematocrit 26.2 % (35-47); Hemoglobin 8.1 gm/dl (12.0-16.0); Lymphocyte (Absolute #) 1.39 (1.0-4.6); Lymphocytes % 18.1 % (24.0-44.0); Mean Cell Volume 97.8 fl (78-100); Mean Corpuscular Hemoglobin 30.2 pg (26-32); Mean Corpuscular Hgb Concent. 30.9 g/dl (32-36); Mean Platelet Volume 9.7 fl (7.5-11.0); Monocyte (Absolute #) 1.08 (0.0-1.3); Monocytes % 14.1 % (0.0-12.0); Neutrophil % 63.8 % (36.0-66.0); Platelet Count 382 K/mm3 (150-450); Red Blood Count 2.68 M/mm3 (4.1-5.4); Red Cell Distribution Width 15.1 % (11.5-14.0); White Blood Count 7.7 K/mm3 (4.0-10.5)
[2019-07-23 17:43] LABS: INR 1.25 (0.8-3.0); PROTIME 14.2 SECONDS (9.95-12.35)
[2019-07-23 17:49] LABS: ALBUMIN 3.2 g/dL (3.5-5.0); ALKALINE PHOSPHATASE 65 U/L (38-126); AMYLASE 49 U/L (30-110); ANION GAP 11.8 MEQ/L (5-15); BLOOD UREA NITROGEN 10 mg/dL (7-17); CHLORIDE 103 mmol/L (98-107); Calcium 8.8 mg/dL (8.4-10.2); Carbon Dioxide 25 mmol/L (22-30); Glucose 109 mg/dL (74-106); LIPASE 158 U/L (23-300); Potassium 3.3 mmol/L (3.5-5.1); SGOT/AST 18 U/L (14-36); SGPT/ALT 18 U/L (0-35); SODIUM 137 mmol/L (137-145); Total Protein 6.2 g/dL (6.3-8.2)
[2019-07-23] MEDS ORDERED: Zofran 4 MG/2 ML VIAL ONE (17:51)
[2019-07-23] MEDS ORDERED: Sodium Chloride 0.9% 1000 ML 1,000 ML ONE ×2 (17:52→20:49)
[2019-07-23] MEDS ORDERED: Hydromorphone 1 mg/ml Ampule ONE (17:52)
[2019-07-23] MEDS ORDERED: Phenergan 25 MG INJ IM ONE (20:43)
[2019-07-23] MEDS ORDERED: Phenergan 25 MG INJ ONE (20:49)
[2019-07-23 23:35] LABS: ABO TYPING A; Antibody Screen NEGATIVE (NEGATIVE); RH TYPING POSITIVE
[2019-07-23] MEDS ORDERED: TYLENOL 325 MG PO PRN (23:50)
[2019-07-24] MEDS: Sodium Chloride 0.9% 1000 ML 1,000 ML IV SCH (00:04)
[2019-07-24 04:43] LABS: Absolute Neutrophil Ct (ANC) 4.02 (1.4-6.9); BASOPHIL % 0.1 % (0.0-0.4); Basophil (Absolute #) 0.01 (0-0.4); Eosinophil % 6.3 % (0.00-5.0); Eosinophil (Absolute #) 0.46 (0-0.5); Hematocrit 23.3 % (35-47); Hemoglobin 7.2 gm/dl (12.0-16.0); Lymphocyte (Absolute #) 1.64 (1.0-4.6); Lymphocytes % 22.6 % (24.0-44.0); Mean Cell Volume 98.7 fl (78-100); Mean Corpuscular Hemoglobin 30.5 pg (26-32); Mean Corpuscular Hgb Concent. 30.9 g/dl (32-36); Mean Platelet Volume 9.6 fl (7.5-11.0); Monocyte (Absolute #) 1.14 (0.0-1.3); Monocytes % 15.7 % (0.0-12.0); Neutrophil % 55.3 % (36.0-66.0); Platelet Count 357 K/mm3 (150-450); Red Blood Count 2.36 M/mm3 (4.1-5.4); Red Cell Distribution Width 15.4 % (11.5-14.0); White Blood Count 7.3 K/mm3 (4.0-10.5)
[2019-07-24 04:45] LABS: ANION GAP 9.9 MEQ/L (5-15); BLOOD UREA NITROGEN 6 mg/dL (7-17); CHLORIDE 108 mmol/L (98-107); Calcium 7.8 mg/dL (8.4-10.2); Carbon Dioxide 24 mmol/L (22-30); Creatinine 1 0.57 mg/dL (0.52-1.04); Glucose 85 mg/dL (74-106); Potassium 3.3 mmol/L (3.5-5.1); SODIUM 138 mmol/L (137-145)
--- NOTE | 2019-07-24 08:43 | XRAY ---
Indication: Abdomen pain. Status post appendectomy and hysterectomy 1 week. Multiple contiguous axial images obtained through the abdomen and pelvis without contrast as ordered. Comparison: March 06, 2019. Lung bases demonstrates minimal bibasilar dependent atelectasis. 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 Heart is not enlarged. Stable small hiatal hernia. Noncontrasted stomach and bowel loops appear nonobstructed. Stable minimal descending and sigmoid diverticulosis. Interval appendectomy and hysterectomy. Small bowel loops are now mildly fluid distended with synchronous fluid leveling probable postoperative ileus and less likely enteritis. Tiny free fluid in the pelvis also possibly postoperative. No walled off fluid collection or free air. Urinary bladder now demonstrates intraluminal air either from recent catheterization versus gas-forming bacterial infection. Stable small left mid renal cyst. Remaining liver, gallbladder, pancreas, spleen, adrenal glands, kidneys, ureters, bladder, and aorta appear unremarkable for noncontrast exam. Osseous structures again demonstrates moderate degenerative changes throughout the thoracolumbar spine, dextrorotoscoliosis, and T9 vertebral hemangioma. Anterior abdomen wall demonstrates new midline cutaneous maira without suspicious fluid or air collection. Impression: 1. Status post appendectomy and hysterectomy with tiny pelvic free fluid. No walled off fluid collection or free air. 2. New mild fluid distended small bowel loops with synchronous fluid leveling probable postoperative ileus and less likely enteritis. 3. New urinary bladder intraluminal air either iatrogenic from catheterization versus gas-forming bacterial infection. 4. Stable small hiatal hernia, colonic diverticulosis, left renal cyst, and chronic bony findings.
[2019-07-24] MEDS: DILAUDID 2 MG INJECTION IV PRN (08:53)
[2019-07-24] MEDS ORDERED: NON-FORMULARY ITEM (Fluticasone/Vilanterol [Breo Ellipta 200-25 Mcg Inh] 1 EACH) IH PRN (08:54)
[2019-07-24] MEDS ORDERED: TRIAMCINOLONE 0.025% TP PRN (08:54)
[2019-07-24] MEDS ORDERED: Bactroban OINTMENT TP PRN (08:54)
[2019-07-24] MEDS ORDERED: CROMOLYN SODIUM OP PRN (08:54)
[2019-07-24] MEDS ORDERED: Lidoderm Patch 5% TP PRN (08:54)
[2019-07-24] MEDS ORDERED: RIZATRIPTAN BENZOATE 10 MG PO PRN (08:54)
[2019-07-24] MEDS: Zofran 4 MG/2 ML VIAL IV PRN (09:00)
[2019-07-24] MEDS ORDERED: Ventolin Hfa MDI IH SCH (09:00)
[2019-07-24] MEDS ORDERED: VENTOLIN COMMON CANISTER IH PRN (09:05)
[2019-07-24] MEDS ORDERED: KENALOG 0.1% CREAM 15 GM TP PRN (09:14)
[2019-07-24] MEDS ORDERED: MEDICATION INTERVENTION PO SCH (09:30)
[2019-07-24] MEDS ORDERED: MEDICATION INTERVENTION MC SCH (09:30)
[2019-07-24] MEDS: PROTONIX 40 MG IV IV SCH (10:13)
[2019-07-24 12:44] LABS: CROSS MATCH (PRBC) COMPATIBLE (COMPATIBLE)
[2019-07-24] MEDS: ZOFRAN ODT 4 MG PO PRN (13:47)
[2019-07-24 18:08] LABS: Adenovirus F 40/41 NEGATIVE (NEGATIVE); Astrovirus NEGATIVE (NEGATIVE); C. Difficile Organism NEGATIVE (NEGATIVE); Campylobacter NEGATIVE (NEGATIVE); Cryptosporidium NEGATIVE (NEGATIVE); Cyclospora cayentanensis NEGATIVE (NEGATIVE); Entamoeaba histolytica NEGATIVE (NEGATIVE); Enteroaggregative E.coli NEGATIVE (NEGATIVE); Enteropathogenic E.coli NEGATIVE (NEGATIVE); Enterotoxigenic E.coli NEGATIVE (NEGATIVE); Giardia lamblia NEGATIVE (NEGATIVE); Norovirus GI/GII NEGATIVE (NEGATIVE); Plesiomonas shigelloides NEGATIVE (NEGATIVE); Rotavirus A NEGATIVE (NEGATIVE); Salmonella NEGATIVE (NEGATIVE); Sapovirus NEGATIVE (NEGATIVE); Shiga-like toxin prod.E.coli NEGATIVE (NEGATIVE); Vibrio NEGATIVE (NEGATIVE); Vibrio cholerae NEGATIVE (NEGATIVE); Yersinia enterocolitica NEGATIVE (NEGATIVE)
[2019-07-24 23:38] LABS: Hematocrit 31.1 % (35-47)
[2019-07-25] MEDS: DILAUDID 2 MG INJECTION IV PRN ×3 (01:29→21:09)
[2019-07-25] MEDS: Zofran 4 MG/2 ML VIAL IV PRN (01:29)
[2019-07-25 05:06] LABS: Absolute Neutrophil Ct (ANC) 4.92 (1.4-6.9); BASOPHIL % 0.2 % (0.0-0.4); Basophil (Absolute #) 0.02 (0-0.4); Eosinophil (Absolute #) 0.44 (0-0.5); Hematocrit 30.5 % (35-47); Hemoglobin 9.8 gm/dl (12.0-16.0); Lymphocyte (Absolute #) 1.79 (1.0-4.6); Lymphocytes % 20.5 % (24.0-44.0); Mean Cell Volume 94.7 fl (78-100); Mean Corpuscular Hemoglobin 30.4 pg (26-32); Mean Corpuscular Hgb Concent. 32.1 g/dl (32-36); Mean Platelet Volume 9.6 fl (7.5-11.0); Monocyte (Absolute #) 1.55 (0.0-1.3); Monocytes % 17.8 % (0.0-12.0); Neutrophil % 56.5 % (36.0-66.0); Platelet Count 315 K/mm3 (150-450); Red Blood Count 3.22 M/mm3 (4.1-5.4); White Blood Count 8.7 K/mm3 (4.0-10.5)
[2019-07-25 05:12] LABS: ALBUMIN 2.7 g/dL (3.5-5.0); ALKALINE PHOSPHATASE 51 U/L (38-126); ANION GAP 8.2 MEQ/L (5-15); BLOOD UREA NITROGEN 4 mg/dL (7-17); CHLORIDE 107 mmol/L (98-107); Calcium 7.8 mg/dL (8.4-10.2); Carbon Dioxide 27 mmol/L (22-30); Creatinine 1 0.55 mg/dL (0.52-1.04); Glucose 99 mg/dL (74-106); Potassium 3.2 mmol/L (3.5-5.1); SGOT/AST 18 U/L (14-36); SGPT/ALT 14 U/L (0-35); SODIUM 139 mmol/L (137-145); Total Protein 5.6 g/dL (6.3-8.2)
[2019-07-25 05:51] LABS: Slide Review 1 YES
[2019-07-25] MEDS: Sodium Chloride 0.9% 1000 ML 1,000 ML IV SCH (05:52)
--- NOTE | 2019-07-25 09:09 | HP ---
CHIEF COMPLAINT: Abdominal pain and diarrhea. 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 The patient was in an [place] hospital, at [facility], for this treatment and had left the hospital approximately three days ago. At the time of discharge the patient was on Lovenox subcu injection twice a day and apparently taking ibuprofen for abdominal pain after the surgery which has led to her now having loose black stools which are concerning for possible upper GI bleed. The patient was admitted to the hospital for further evaluation and management. PAST MEDICAL/SURGICAL HISTORY: Again significant for the recent abdominal surgery which was felt to be due to a cancer. The patient reports that the surgeons felt like they got it all in her opinion. They indicated that she would not likely need additional treatment including chemotherapy. The patient has an appointment set up with Dr. Foley for follow up in [place] but has not seen him yet. MEDICATIONS: Her home medications are quite extensive include Montelukast, Albuterol, B12, Prempro, levocetirizine, meclizine, pantoprazole, lisinopril, Fosamax, Tessalon Perles, cromolyn sodium, dexamethasone 50 mg b.i.d., dextromethorphan, Diclofenac gel, Lomotil, fluticasone, Breo Ellipta, Lasix 40 mg a day, gabapentin 300 mg t.i.d. a day, [place] 10/325 mg, Lactase, lidocaine, meloxicam, mometasone, multivitamins, Mupirocin, Zofran, Pravastatin, Rizatriptan, Zanaflex, Topamax, triamcinolone and finally Venlafaxine. ALLERGIES: ROCEPHIN. CEPHALOSPORIN. LATEX. PHYSICAL EXAMINATION: The patient's vital signs on admission include a temperature 98.1F, pulse 78, respiratory rate 22 and blood pressure 138/94. O2 saturations 100%. HEENT: Normocephalic, atraumatic. Pupils equal round reactive to light. Extraocular movements intact. Oropharynx is pink and moist. NECK: Supple. CHEST: Essentially clear. HEART: Regular rate and rhythm. ABDOMEN: Shows a midline scar which is slightly red in the superior and inferior portions along the midline without any drainage presently. Arian are still in place. There was mild tenderness of the abdomen and bowel sounds were somewhat diminished. EXTREMITIES: Without cyanosis, clubbing or edema. NEUROLOGIC: The patient is alert and oriented x3. LAB DATA AND TESTS: CT scan revealing ileus pattern. The patient had initial blood work showing lactic acid of 1.2. Her glucose is 109, BUN 10, creatinine 0.6. Electrolytes slightly low with potassium 3.3. Liver enzymes were normal. Amylase and lipase were normal. International normalized ratio was 1.25. Her white count was 10,700, hemoglobin 8.1, PLT count 382,000. ASSESSMENT: We had plans to admit the patient to the hospital for IV fluid hydration and monitoring of her blood count to see if she might require transfusion, possible consideration of GI endoscopy yet the hemoglobin continued to drop significantly. We will currently keep an eye on the wound as it might require antibiotics as she was beginning to have some redness concerning for developing cellulitis. The patient is stopped on her ibuprofen, stopped on her Lovenox shots, placed sequential compression devices on her legs to prevent deep venous thrombosis development.
[2019-07-25] MEDS: VANCOMYCIN 1 GRAM/200 ML BAG 1 GM/200 ML PIGGYBACK IV SCH ×2 (10:45→22:30)
[2019-07-25] MEDS: PROTONIX 40 MG IV IV SCH (10:45)
[2019-07-25] MEDS: FLAGYL 500 MG IVPB 500 MG/100 ML BAG IV SCH ×3 (10:45→21:09)
--- NOTE | 2019-07-25 12:29 | PCM.CONS ---
History of Present Illness - Reason for Consult Chief Complaint: Postoperative diarrhea and abd pain Requesting Provider: DENA RUIZ Consulting Provider: ISH MCLAUGHLIN MD History of Present Illness: hx per chart review and d/w patient. 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 She has had worsening abdominal cramping and liquid black stools. Patient was given a prescription of Percocet which she has not been taking. She was also told to take 800 mg of ibuprofen 3-4 times a day. She has been taking this. She has been receiving Lovenox subcutaneous injections twice a day. Presents to the emergency room with abdominal pain and several, uncontrollable liquid bowel movements. Has had associated vomiting as well Timing/Duration: day(s) (2) Quality: cramping Abdominal Pain Onset Location: generalized abdomen Pain Radiation: no radiation Severity of Pain-Max: moderate Severity of Pain-Current: moderate Modifying Factors: Improves With: vomiting Associated Symptoms: diarrhea, nausea, vomiting Previous symptoms: no prior history Allergies/Adverse Reactions: since admission did have some loose incontinent stools--several times a day but pt unsure exactly. no emesis. mild nausea. Stool studies negative. lower abdominal pain over incision with purulent drainage. - Review of Systems Constitutional: No Symptoms Eyes: No Symptoms Ears, Nose, & Throat: No Symptoms Respiratory: No Symptoms Cardiac: No Symptoms Abdominal/Gastrointestinal: Abdominal Pain, Nausea, Vomiting, Diarrhea Genitourinary Symptoms: No Symptoms Musculoskeletal: No Symptoms Skin: No Symptoms Neurological: No Symptoms Psychological: No Symptoms Endocrine: No Symptoms Hematologic/Lymphatic: No Symptoms Immunological/Allergic: No Symptoms All Other Systems: Reviewed and Negative - Past Medical History Pertinent Past Medical History: Yes Neurological History: No Pertinent History ENT History: No Pertinent History Cardiac History: Hypertension Respiratory History: Asthma, Bronchitis Endocrine Medical History: No Pertinent History Musculoskeletal History: Arthritis, Rheumatoid Arthritis GI Medical History: GERD History: No Pertinent History Psycho-Social History: Other Female Reproductive Disorders: No Pertinent History Other Medical History: pt states she has PTSD - Past Surgical History Past Surgical History: Yes Neuro Surgical History: No Pertinent History Cardiac: No Pertinent History Respiratory: Other Gastrointestinal: No Pertinent History Genitourinary: No Pertinent History Musculoskeletal: Other Female Surgical History: Tubal Ligation Other Surgical History: pt has had bilateral foot correction surgery. rib surgery and skin cancer removal. - Social History Smoking Status: Never smoker Exposure to second hand smoke: No Drug Use: none Patient Lives Alone: No Medications & Allergies Home Medications: Home Medication List Montelukast Sodium [Singulair] 10 mg PO HS 05/23/15 [History Confirmed 07/24/19] Albuterol 8 gm Mdi Hfa [Ventolin Hfa MDI] 2 puffs IH UD 05/18/16 [History Confirmed 07/23/19] Cyanocobalamin 1000 Mcg/ml [Cyanocobalamin B-12 1000 MCG/ML] 1,000 mcg SQ UD 05/18/16 [History Confirmed 07/24/19] Levocetirizine Dihydrochloride 5 mg PO DAILY 05/18/16 [History Confirmed ] Meclizine HCl 25 mg [Antivert 25 mg] 25 mg PO DAILY PRN PRN 05/18/16 [ History Confirmed 07/24/19] Lisinopril 20 mg [Zestril 20 MG] 20 mg PO DAILY 12/13/16 [History Confirmed 07/24/19] Alendronate Sodium 70 mg [Fosamax 70 MG] 70 mg PO WEEKLY 04/10/19 [ History Confirmed 07/24/19] Benzonatate [Tessalon Perle] 100 mg PO DAILY PRN PRN 04/10/19 [History Confirmed 07/24/19] Cromolyn Sodium 10 ml OP QID PRN PRN 04/10/19 [History Confirmed 07/24/19] Desoximetasone 15 gm TP BID PRN PRN 04/10/19 [History Confirmed 07/24/19] Dextromethorphan Polistirex [Delsym] 30 mg PO BIDPRN PRN 04/10/19 [History Confirmed 07/23/19] Diclofenac Sodium Gel [Voltaren GEL] 100 gm TP QID PRN PRN 04/10/19 [ History Confirmed 07/24/19] Diphenoxylate HCl/Atropine [Lomotil 2.5-0.025 mg Tablet] 1 each PO QIDPRN PRN [History Confirmed 07/24/19] Fluticasone/Vilanterol [Breo Ellipta 200-25 Mcg INH] 1 each IH DAILY PRN PRN [History Confirmed 07/24/19] Gabapentin [Neurontin] 300 mg PO HS 04/10/19 [History Confirmed 07/24/19] Hydrocodone Bit/Acetaminophen [Hydrocodon-Acetaminophn 10-325] 1 each PO Q4HPRN PRN 04/10/19 [History Confirmed 07/23/19] Lidocaine [Lidoderm] 1 each TP DAILY PRN PRN 04/10/19 [History Confirmed ] Mometasone Furoate [Nasonex] 17 gm NS DAILY PRN PRN 04/10/19 [History Confirmed 07/24/19] Multivitamin/Iron/Folic Acid [Cerovite Advanced Form Tab] 1 each PO DAILY [History Confirmed 07/23/19] Mupirocin [Bactroban OINTMENT] 15 gm TP TID PRN PRN 04/10/19 [History Confirmed 07/24/19] Ondansetron [Ondansetron Odt] 4 mg PO Q8HPRN PRN 04/10/19 [History Confirmed 12/05] Pravastatin Sodium [Pravachol] 40 mg PO HS 04/10/19 [History Confirmed 07/24/19] Rizatriptan Benzoate [Rizatriptan] 10 mg PO DAILY PRN PRN 04/10/19 [History Confirmed 07/24/19] Tizanidine HCl 4 mg [Zanaflex 4 MG] 4 mg PO TID PRN PRN 04/10/19 [History Confirmed 07/24/19] Topiramate 25 mg [Topamax 25 MG] 50 mg PO HS 04/10/19 [History Confirmed 07/24/19] Triamcinolone 0.025% Cream [Triamcinolone Acetonide] 453.6 gm TP BID PRN PRN [History Confirmed 07/24/19] Enoxaparin Sodium 40 mg SQ 1400 07/24/19 [History Confirmed 07/24/19] PANTOPRAZOLE 40 mg Tablet [Protonix 40MG Tablet] 40 mg PO DAILY PRN PRN [History Confirmed 07/24/19] Venlafaxine HCl [Venlafaxine HCl ER] 1 cap PO HS 07/24/19 [History Confirmed 12/05] Allergies/Adverse Reactions: Allergies Allergy/AdvReac Type Severity Reaction Status Date / Time ceftriaxone sodium Allergy Severe resp arrest Verified 12/15/16 06:30 [From Rocephin] Cephalosporins Allergy Severe resp arrest Verified 12/15/16 06:30 latex Allergy Verified 12/15/16 06:30 - Past Medical History Past Medical History: Yes Neurological History: No Pertinent History ENT History: No Pertinent History Cardiac History: Hypertension Respiratory History: Asthma, Bronchitis Endocrine Medical History: No Pertinent History Musculoskelatal History: Arthritis, Rheumatoid Arthritis GI Medical History: GERD History: No Pertinent History Pyscho-Social History: Other Reproductive Disorders: No Pertinent History Comment: pt states she has PTSD - Female History Hx Last Menstrual Period: hysterectomy Are you now?: No (Recent hystorectomy) - Past Surgical History Past Surgical History: Yes Neuro Surgical History: No Pertinent History Cardiac History: No Pertinent History Respiratory Surgery: Other GI Surgical History: Appendectomy Genitourinary Surgical Hx: No Pertinent History Musculskeletal Surgical Hx: Other Female Surgical History: Hysterectomy, Tubal Ligation Other Surgical History: pt has had bilateral foot correction surgery. rib surgery and skin cancer removal. - Social History Smoking Status: Never smoker Exposure to second hand smoke: No Alcohol: Rarely Drug Use: none - Physical Exam Vital Signs: Vital Signs - 24 hr Temp Pulse Resp BP Pulse Ox 07/25/19 07:49 98.3 F 73 18 139/68 97 07/25/19 06:58 73 18 97 07/25/19 04:00 98.8 F 72 17 133/71 96 07/25/19 00:13 99.3 F 72 20 133/73 97 07/24/19 20:28 83 18 93 L 07/24/19 20:19 99.5 F 72 18 125/67 96 07/24/19 16:00 100.1 F 78 16 160/80 92 L General Appearance: no apparent distress, alert Neurologic Exam: alert, oriented x 3 Eye Exam: eyes nml inspection, pale conjunctivae, No scleral icterus Neck Exam: normal inspection Respiratory Exam: other (nonlabored resps) Cardiovascular Exam: regular rate/rhythm Gastrointestinal/Abdomen Exam: soft (soft, nondistended. lower abd fullness induration lower inision, 5cm opened purulence drained. mild surrounding erythema. does not probe past fascia. packed with moist gauze.) Pelvic Exam: not done Rectal Exam: deferred Skin Exam: normal color Results - Labs Lab/Micro Results: Lab Results-Last 24 Hours 07/24/19 07/24/19 07/24/19 Range/Units 09:00 13:50 23:30 WBC (4.0-10.5) K/mm3 RBC (4.1-5.4) M/mm3 Hgb 10.0 L D (12.0-16.0) gm/dl Hct 31.1 L (35-47) % MCV (78-100) fl MCH (26-32) pg MCHC (32-36) g/dl RDW (11.5-14.0) % Plt Count (150-450) K/mm3 MPV (7.5-11.0) fl Gran % (36.0-66.0) % Eos # (Auto) (0-0.5) Absolute Lymphs (auto) (1.0-4.6) Absolute Monos (auto) (0.0-1.3) Lymphocytes % (24.0-44.0) % Monocytes % (0.0-12.0) % Eosinophils % (0.00-5.0) % Basophils % (0.0-0.4) % Absolute Granulocytes (1.4-6.9) Basophils # (0-0.4) Sodium (137-145) mmol/L Potassium (3.5-5.1) mmol/L Chloride (98-107) mmol/L Carbon Dioxide (22-30) mmol/L Anion Gap (5-15) MEQ/L BUN (7-17) mg/dL Creatinine (0.52-1.04) mg/dL Estimated GFR ML/MIN Glucose (74-106) mg/dL Calcium (8.4-10.2) mg/dL Total Bilirubin (0.2-1.3) mg/dL AST (14-36) U/L ALT (0-35) U/L Alkaline Phosphatase (38-126) U/L Serum Total Protein (6.3-8.2) g/dL Albumin (3.5-5.0) g/dL Stl C. cayetanensis PCR NEGATIVE (NEGATIVE) Stl Adenov F 40/41 PCR NEGATIVE (NEGATIVE) Stool Astrovirus (PCR) NEGATIVE (NEGATIVE) Stool Cryptosporidium PCR NEGATIVE (NEGATIVE) Stool EPEC (PCR) NEGATIVE (NEGATIVE) Stool EAEC (PCR) NEGATIVE (NEGATIVE) Stl E. histolytica PCR NEGATIVE (NEGATIVE) Stl P. shigelloides PCR NEGATIVE (NEGATIVE) Stool Sapovirus (PCR) NEGATIVE (NEGATIVE) St Y.enterocolitica PCR NEGATIVE (NEGATIVE) Stool Vibrio (PCR) NEGATIVE (NEGATIVE) Stl Vibrio cholerae PCR NEGATIVE (NEGATIVE) Stl Norovirus GI/GII PCR NEGATIVE (NEGATIVE) Campylobacter (PCR) NEGATIVE (NEGATIVE) C. difficile (PCR) NEGATIVE (NEGATIVE) Enterotoxigenic E. coli NEGATIVE (NEGATIVE) E.coli Shiga Toxins NEGATIVE (NEGATIVE) Giardia lamblia NEGATIVE (NEGATIVE) Rotavirus A (PCR) NEGATIVE (NEGATIVE) Salmonella (PCR) NEGATIVE (NEGATIVE) Shigella (PCR) NEGATIVE (NEGATIVE) Slides for Path Review Crossmatch COMPATIBLE (COMPATIBLE) 07/25/19 07/25/19 Range/Units 04:46 04:46 WBC 8.7 (4.0-10.5) K/mm3 RBC 3.22 L (4.1-5.4) M/mm3 Hgb 9.8 L (12.0-16.0) gm/dl Hct 30.5 L (35-47) % MCV 94.7 (78-100) fl MCH 30.4 (26-32) pg MCHC 32.1 (32-36) g/dl RDW 16.0 H (11.5-14.0) % Plt Count 315 (150-450) K/mm3 MPV 9.6 (7.5-11.0) fl Gran % 56.5 (36.0-66.0) % Eos # (Auto) 0.44 (0-0.5) Absolute Lymphs (auto) 1.79 (1.0-4.6) Absolute Monos (auto) 1.55 H (0.0-1.3) Lymphocytes % 20.5 L (24.0-44.0) % Monocytes % 17.8 H (0.0-12.0) % Eosinophils % 5.0 (0.00-5.0) % Basophils % 0.2 (0.0-0.4) % Absolute Granulocytes 4.92 (1.4-6.9) Basophils # 0.02 (0-0.4) Sodium 139 (137-145) mmol/L Potassium 3.2 L (3.5-5.1) mmol/L Chloride 107 (98-107) mmol/L Carbon Dioxide 27 (22-30) mmol/L Anion Gap 8.2 (5-15) MEQ/L BUN 4 L (7-17) mg/dL Creatinine 0.55 (0.52-1.04) mg/dL Estimated GFR > 60.0 ML/MIN Glucose 99 (74-106) mg/dL Calcium 7.8 L (8.4-10.2) mg/dL Total Bilirubin 0.70 (0.2-1.3) mg/dL AST 18 (14-36) U/L ALT 14 (0-35) U/L Alkaline Phosphatase 51 (38-126) U/L Serum Total Protein 5.6 L (6.3-8.2) g/dL Albumin 2.7 L (3.5-5.0) g/dL Stl C. cayetanensis PCR (NEGATIVE) Stl Adenov F 40/41 PCR (NEGATIVE) Stool Astrovirus (PCR) (NEGATIVE) Stool Cryptosporidium PCR (NEGATIVE) Stool EPEC (PCR) (NEGATIVE) Stool EAEC (PCR) (NEGATIVE) Stl E. histolytica PCR (NEGATIVE) Stl P. shigelloides PCR (NEGATIVE) Stool Sapovirus (PCR) (NEGATIVE) St Y.enterocolitica PCR (NEGATIVE) Stool Vibrio (PCR) (NEGATIVE) Stl Vibrio cholerae PCR (NEGATIVE) Stl Norovirus GI/GII PCR (NEGATIVE) Campylobacter (PCR) (NEGATIVE) C. difficile (PCR) (NEGATIVE) Enterotoxigenic E. coli (NEGATIVE) E.coli Shiga Toxins (NEGATIVE) Giardia lamblia (NEGATIVE) Rotavirus A (PCR) (NEGATIVE) Salmonella (PCR) (NEGATIVE) Shigella (PCR) (NEGATIVE) Slides for Path Review YES Crossmatch (COMPATIBLE) - Radiology Impressions Radiology Exams & Impressions: Radiology Procedures Category Date Time Status ABDOMEN AND PELVIS W/0 CONTRAS [CT] Stat Exams 07/23/19 17:35 Completed Assessment/Plan (1) Postoperative abdominal pain Current Visit: Yes Status: Acute Assessment & Plan: 63yo female around 12 days postop appendectomy, hysterectomy, debulking hipec do not have the medical records now admitted with abdominal pain, wound infection s/p staple removal and packing, diarrhea likely reactive to her [facility]IP[facility] , stool studies negative. benign exam, CT ok ?enteritis likely from hipec, anemia appropriate response to transfusion. -BID moist to dry dressing changes to lower midline wound -ABX cont per primary -The surgery she had is a very specialized procedure and she would be best treated at her [facility] facility. She is not open to transfer at this time and wants to stay at [facility]. We will follow while she is here, but she would be best served at her [facility] facility. Code(s): R10.9 - UNSPECIFIED ABDOMINAL PAIN; G89.18 - OTHER ACUTE POSTPROCEDURAL PAIN
[2019-07-25] MEDS: IMODIUM 2 MG PO PRN ×2 (15:31→22:30)
[2019-07-25] MEDS: Sodium Chloride 0.9% W/ 20 mEq KCl/LITER 1,000 ML IV SCH (16:51)
[2019-07-25] MEDS: Norco 10/325 MG Tablet PO PRN (21:39)
[2019-07-26] MEDS: Norco 10/325 MG Tablet PO PRN ×3 (05:18→21:37)
[2019-07-26] MEDS: FLAGYL 500 MG IVPB 500 MG/100 ML BAG IV SCH ×3 (05:19→21:36)
[2019-07-26] MEDS: ZOFRAN ODT 4 MG PO PRN ×2 (06:07→21:48)
[2019-07-26 06:41] LABS: Hematocrit 31.2 % (35-47); Mean Cell Volume 95.1 fl (78-100); Mean Corpuscular Hemoglobin 30.5 pg (26-32); Mean Corpuscular Hgb Concent. 32.1 g/dl (32-36); Mean Platelet Volume 9.9 fl (7.5-11.0); Platelet Count 347 K/mm3 (150-450); Red Blood Count 3.28 M/mm3 (4.1-5.4); Red Cell Distribution Width 15.7 % (11.5-14.0); White Blood Count 8.6 K/mm3 (4.0-10.5)
[2019-07-26 06:48] LABS: ALBUMIN 2.7 g/dL (3.5-5.0); ALKALINE PHOSPHATASE 47 U/L (38-126); ANION GAP 10.3 MEQ/L (5-15); BLOOD UREA NITROGEN 3 mg/dL (7-17); CHLORIDE 107 mmol/L (98-107); Calcium 7.7 mg/dL (8.4-10.2); Carbon Dioxide 23 mmol/L (22-30); Creatinine 1 0.49 mg/dL (0.52-1.04); Glucose 106 mg/dL (74-106); SGOT/AST 17 U/L (14-36); SGPT/ALT 13 U/L (0-35); SODIUM 138 mmol/L (137-145); Total Protein 5.4 g/dL (6.3-8.2)
[2019-07-26 07:22] LABS: Lymphocytes 31 % (24-44); Monocyte 8 % (0.0-12.0); Neutrophils 61 % (36.0-66.0); Platelet Estimate NORMAL (NORMAL); Total Cells Counted 100
[2019-07-26] MEDS: K-LYTE 25 MEQ PO ONE ×2 (08:19→08:27)
[2019-07-26] MEDS: PATIENT OWN MEDICATION IH SCH (08:26)
--- NOTE | 2019-07-26 08:54 | PCM.NOTE ---
Date and Time: 07/26/19 0850 Subjective Assessment: h/h stable, no problems overnight. patient reports her stools are well controlled, she is tolerating po intake. has some drainage from her wound and some post-op pain as expected but overall thinks she is improved Objective Exam General Appearance: no apparent distress Neurologic Exam: alert, oriented x 3 Respiratory Exam: normal breath sounds, lungs clear, No respiratory distress Cardiovascular Exam: regular rate/rhythm, normal heart sounds Gastrointestinal/Abdomen Exam: soft, other (lower abdominal incision with maira intact, lower incision open and packed, purulent drainage scant with minimal surrounding erythema) OBJECTIVE DATA Vital Signs: Vital Signs - 24 hr Temp Pulse Resp BP Pulse Ox 07/26/19 08:27 76 18 95 07/26/19 07:17 98.5 F 73 20 127/60 95 07/26/19 07:16 95 07/26/19 04:00 98.1 F 72 18 124/69 95 07/25/19 23:53 98.3 F 76 18 121/70 97 07/25/19 20:00 98.8 F 80 18 126/68 95 07/25/19 16:00 98.7 F 63 18 154/78 95 07/25/19 12:00 98.8 F 72 18 126/82 95 Pain Assessment - Last Documented Pain Intensity 5 Pain Scale Used 0-10 Pain Scale,Leyva-Arteaga Faces Intake and Output: Intake & Output 07/23/19 07/24/19 07/25/19 07/26/19 11:59 11:59 11:59 11:59 Intake Total 868 2630 2654 Output Total 1100 500 Balance 868 1530 2154 Weight 75.5 kg 79.8 kg 80.1 kg Lab Results: Lab Results-Last 24 Hours 07/26/19 07/26/19 Range/Units 06:05 06:05 WBC 8.6 (4.0-10.5) K/mm3 RBC 3.28 L (4.1-5.4) M/mm3 Hgb 10.0 L (12.0-16.0) gm/dl Hct 31.2 L (35-47) % MCV 95.1 (78-100) fl MCH 30.5 (26-32) pg MCHC 32.1 (32-36) g/dl RDW 15.7 H (11.5-14.0) % Plt Count 347 (150-450) K/mm3 MPV 9.9 (7.5-11.0) fl Segmented Neutrophils 61 (36.0-66.0) % Lymphocytes (Manual) 31 (24-44) % Monocytes (Manual) 8 (0.0-12.0) % Platelet Estimate NORMAL (NORMAL) RBC Morphology NORMAL Sodium 138 (137-145) mmol/L Potassium 3.0 L (3.5-5.1) mmol/L Chloride 107 (98-107) mmol/L Carbon Dioxide 23 (22-30) mmol/L Anion Gap 10.3 (5-15) MEQ/L BUN 3 L (7-17) mg/dL Creatinine 0.49 L (0.52-1.04) mg/dL Estimated GFR > 60.0 ML/MIN Glucose 106 (74-106) mg/dL Calcium 7.7 L (8.4-10.2) mg/dL Total Bilirubin 0.40 (0.2-1.3) mg/dL AST 17 (14-36) U/L ALT 13 (0-35) U/L Alkaline Phosphatase 47 (38-126) U/L Serum Total Protein 5.4 L (6.3-8.2) g/dL Albumin 2.7 L (3.5-5.0) g/dL Multi-Disciplinary Progress Notes: Multi-Disciplinary Progress Notes 07/25/19 14:35 Case Management Note by Porsha Hollis [facility] ACCEPTED PATIENT. NURSING TO CALL AT TIME OF DISCHARGE. THE PHONE NUMBER IS [phone]. NURSING TO ALSO FAX DC INSTRUCTIONS AND MED LIST (AND DC SUMMARY IF AVAILABLE)TO [phone]. THIS INFORMATION PLACED ON REPORT SHEET Initialized on 07/25/19 14:35 - END OF NOTE 07/25/19 11:50 Case Management Note by Porsha Hollis S/W PATIENT- SHE DECIDED ON [facility]- THEY WERE FAXED A REFERRAL. PATIENT FEELS THIS WILL BE ENOUGH SUPPORT FOR HER AT HOME AND SHE HAS FAMILY/FRIENDS THAT CAN HELP WITH HOUSEWORK. SHE REPORTS SHE WILL BE ABLE TO GET HER MEDICATIONS FILLED AND HAVE TRANSPORTATION TO [facility] Initialized on 07/25/19 11:50 - END OF NOTE Assessment/Plan (1) Postoperative wound infection Current Visit: Yes Status: Acute Assessment & Plan: on vanc/flagyl Code(s): T81.49XA - INFECTION FOLLOWING A PROCEDURE, OTHER SURGICAL SITE, INIT (2) GI bleed Current Visit: Yes Status: Acute Assessment & Plan: h/h stable, continue PPI Code(s): K92.2 - GASTROINTESTINAL HEMORRHAGE, UNSPECIFIED (3) Anemia Current Visit: Yes Status: Acute Code(s): D64.9 - ANEMIA, UNSPECIFIED (4) Postoperative abdominal pain Current Visit: Yes Status: Acute Code(s): R10.9 - UNSPECIFIED ABDOMINAL PAIN ; G89.18 - OTHER ACUTE POSTPROCEDURAL PAIN
[2019-07-26] MEDS ORDERED: PATIENT OWN MEDICATION IH SCH (10:00)
[2019-07-26] MEDS: Valium 5 MG PO PRN ×2 (10:54→21:48)
[2019-07-26] MEDS: Klor Con 10 MEQ PO SCH ×2 (10:54→21:36)
[2019-07-26] MEDS: PROTONIX 40 MG IV IV SCH (10:55)
[2019-07-26] MEDS: VANCOMYCIN 1 GRAM/200 ML BAG 1 GM/200 ML PIGGYBACK IV SCH ×2 (10:55→22:28)
[2019-07-26] MEDS: Sodium Chloride 0.9% W/ 20 mEq KCl/LITER 1,000 ML IV SCH (19:38)
[2019-07-26] MEDS: Effexor ER 37.5 MG PO SCH (21:36)
[2019-07-26] MEDS: TOPIRAMATE PO SCH (21:39)
[2019-07-27] MEDS: Norco 10/325 MG Tablet PO PRN ×2 (03:33→11:06)
[2019-07-27 05:56] LABS: Hematocrit 30.3 % (35-47); Hemoglobin 9.6 gm/dl (12.0-16.0); Mean Cell Volume 96.8 fl (78-100); Mean Corpuscular Hemoglobin 30.7 pg (26-32); Mean Corpuscular Hgb Concent. 31.7 g/dl (32-36); Mean Platelet Volume 9.4 fl (7.5-11.0); Platelet Count 380 K/mm3 (150-450); Red Blood Count 3.13 M/mm3 (4.1-5.4); Red Cell Distribution Width 15.6 % (11.5-14.0); White Blood Count 7.7 K/mm3 (4.0-10.5)
[2019-07-27 06:14] LABS: ANION GAP 7.6 MEQ/L (5-15); CHLORIDE 110 mmol/L (98-107); Carbon Dioxide 23 mmol/L (22-30); Creatinine 1 0.49 mg/dL (0.52-1.04); Glucose 98 mg/dL (74-106); Potassium 3.8 mmol/L (3.5-5.1); SODIUM 137 mmol/L (137-145)
[2019-07-27 06:15] LABS: BLOOD UREA NITROGEN 2 mg/dL (7-17)
[2019-07-27] MEDS: FLAGYL 500 MG IVPB 500 MG/100 ML BAG IV SCH ×3 (06:28→21:23)
[2019-07-27] MEDS: PATIENT OWN MEDICATION IH SCH (07:52)
--- NOTE | 2019-07-27 08:14 | PCM.NOTE ---
Date and Time: 07/27/19811 Subjective Assessment: patient doing well, no black stools or diarrhea, no new complaints. she is concerned about her ability to care for herself in the home when discharged Objective Exam General Appearance: no apparent distress Neurologic Exam: alert, oriented x 3 Respiratory Exam: normal breath sounds, lungs clear, No respiratory distress Cardiovascular Exam: regular rate/rhythm, normal heart sounds Gastrointestinal/Abdomen Exam: soft, other (dressing c/d/i) Extremity Exam: normal inspection, normal range of motion OBJECTIVE DATA Vital Signs: Vital Signs - 24 hr Temp Pulse Resp BP Pulse Ox 07/27/19 07:53 74 18 95 07/27/19 04:00 98.3 F 70 16 135/63 97 07/26/19 23:41 98.1 F 73 18 134/77 97 07/26/19 20:00 97.6 F 71 18 118/73 96 07/26/19 18:52 77 16 96 07/26/19 15:56 99.6 F 72 20 142/82 96 07/26/19 11:45 98.6 F 77 18 121/58 96 07/26/19 08:27 76 18 95 Pain Assessment - Last Documented Pain Intensity 7 Pain Scale Used [employer] Intake and Output: Intake & Output 07/24/19 07/25/19 07/26/19 07/27/19 11:59 11:59 11:59 11:59 Intake Total 868 2630 2854 3036 Output Total 1100 1200 850 Balance 868 1530 1654 2186 Weight 75.5 kg 79.8 kg 80.1 kg Lab Results: Lab Results-Last 24 Hours 07/26/19 07/27/19 07/27/19 Range/Units 06:00 05:30 05:30 WBC 7.7 (4.0-10.5) K/mm3 RBC 3.13 L (4.1-5.4) M/mm3 Hgb 9.6 L (12.0-16.0) gm/dl Hct 30.3 L (35-47) % MCV 96.8 (78-100) fl MCH 30.7 (26-32) pg MCHC 31.7 L (32-36) g/dl RDW 15.6 H (11.5-14.0) % Plt Count 380 (150-450) K/mm3 MPV 9.4 (7.5-11.0) fl Sodium 137 (137-145) mmol/L Potassium 3.8 D (3.5-5.1) mmol/L Chloride 110 H (98-107) mmol/L Carbon Dioxide 23 (22-30) mmol/L Anion Gap 7.6 (5-15) MEQ/L BUN 2 L (7-17) mg/dL Creatinine 0.49 L (0.52-1.04) mg/dL Estimated GFR > 60.0 ML/MIN Glucose 98 (74-106) mg/dL Calcium 8.0 L (8.4-10.2) mg/dL Magnesium 1.6 (1.6-2.3) mg/dL 07/27/19 Range/Units 05:30 WBC (4.0-10.5) K/mm3 RBC (4.1-5.4) M/mm3 Hgb (12.0-16.0) gm/dl Hct (35-47) % MCV (78-100) fl MCH (26-32) pg MCHC (32-36) g/dl RDW (11.5-14.0) % Plt Count (150-450) K/mm3 MPV (7.5-11.0) fl Sodium (137-145) mmol/L Potassium (3.5-5.1) mmol/L Chloride (98-107) mmol/L Carbon Dioxide (22-30) mmol/L Anion Gap (5-15) MEQ/L BUN (7-17) mg/dL Creatinine (0.52-1.04) mg/dL Estimated GFR ML/MIN Glucose (74-106) mg/dL Calcium (8.4-10.2) mg/dL Magnesium 1.6 (1.6-2.3) mg/dL Assessment/Plan (1) Postoperative wound infection Current Visit: Yes Status: Acute Assessment & Plan: advised to discuss possible swingbed stay with Dr Benítez in am for wound care and abx Code(s): T81.49XA - INFECTION FOLLOWING A PROCEDURE, OTHER SURGICAL SITE, INIT (2) GI bleed Current Visit: Yes Status: Acute Assessment & Plan: doing well, h/h stable Code(s): K92.2 - GASTROINTESTINAL HEMORRHAGE, UNSPECIFIED (3) Anemia Current Visit: Yes Status: Acute Code(s): D64.9 - ANEMIA, UNSPECIFIED (4) Postoperative abdominal pain Current Visit: Yes Status: Acute Code(s): R10.9 - UNSPECIFIED ABDOMINAL PAIN ; G89.18 - OTHER ACUTE POSTPROCEDURAL PAIN
[2019-07-27] MEDS ORDERED: TROUGH DRUG LEVELS IJ ONE (09:00)
[2019-07-27] MEDS: VANCOMYCIN 1 GRAM/200 ML BAG 1 GM/200 ML PIGGYBACK IV SCH ×2 (10:55→23:23)
[2019-07-27] MEDS: Klor Con 10 MEQ PO SCH (10:55)
[2019-07-27] MEDS: PROTONIX 40 MG IV IV SCH (10:55)
[2019-07-27 12:22] LABS: Eosinophil 2 % (0.00-3.0); Lymphocytes 24 % (24-44); Monocyte 11 % (0.0-12.0); Neutrophils 63 % (36.0-66.0); Platelet Estimate NORMAL (NORMAL); Total Cells Counted 100
[2019-07-27] MEDS: Valium 5 MG PO PRN (18:02)
[2019-07-27] MEDS: Sodium Chloride 0.9% W/ 20 mEq KCl/LITER 1,000 ML IV SCH (21:21)
[2019-07-27] MEDS: TOPIRAMATE PO SCH (21:23)
[2019-07-27] MEDS: Effexor ER 37.5 MG PO SCH (21:23)
[2019-07-27] MEDS: ZOFRAN ODT 4 MG PO PRN (21:23)
[2019-07-28] MEDS: Valium 5 MG PO PRN ×2 (00:47→21:08)
[2019-07-28 05:09] LABS: Absolute Neutrophil Ct (ANC) 3.36 (1.4-6.9); BASOPHIL % 0.3 % (0.0-0.4); Basophil (Absolute #) 0.02 (0-0.4); Eosinophil % 6.1 % (0.00-5.0); Eosinophil (Absolute #) 0.44 (0-0.5); Hematocrit 32.5 % (35-47); Hemoglobin 10.3 gm/dl (12.0-16.0); Lymphocyte (Absolute #) 1.82 (1.0-4.6); Lymphocytes % 25.2 % (24.0-44.0); Mean Cell Volume 96.2 fl (78-100); Mean Corpuscular Hemoglobin 30.5 pg (26-32); Mean Corpuscular Hgb Concent. 31.7 g/dl (32-36); Mean Platelet Volume 9.5 fl (7.5-11.0); Monocyte (Absolute #) 1.59 (0.0-1.3); Neutrophil % 46.4 % (36.0-66.0); Platelet Count 440 K/mm3 (150-450); Red Blood Count 3.38 M/mm3 (4.1-5.4); Red Cell Distribution Width 15.7 % (11.5-14.0); White Blood Count 7.2 K/mm3 (4.0-10.5)
[2019-07-28 05:49] LABS: ANION GAP 8.8 MEQ/L (5-15); BLOOD UREA NITROGEN 3 mg/dL (7-17); CHLORIDE 108 mmol/L (98-107); Calcium 8.6 mg/dL (8.4-10.2); Carbon Dioxide 23 mmol/L (22-30); Glucose 96 mg/dL (74-106); Potassium 3.8 mmol/L (3.5-5.1); SODIUM 136 mmol/L (137-145)
[2019-07-28] MEDS: FLAGYL 500 MG IVPB 500 MG/100 ML BAG IV SCH ×3 (06:02→21:08)
[2019-07-28] MEDS: Klor Con 10 MEQ PO SCH (09:58)
[2019-07-28] MEDS: PROTONIX 40 MG IV IV SCH (09:58)
[2019-07-28] MEDS: VANCOMYCIN 1 GRAM/200 ML BAG 1 GM/200 ML PIGGYBACK IV SCH ×2 (09:58→22:09)
[2019-07-28] MEDS: Norco 10/325 MG Tablet PO PRN ×2 (10:08→21:12)
[2019-07-28 12:13] LABS: Slide Review 1 YES
[2019-07-28] MEDS: PATIENT OWN MEDICATION IH SCH (12:25)
[2019-07-28] MEDS: ENOXAPARIN SODIUM SQ SCH (16:38)
[2019-07-28] MEDS: ZOFRAN ODT 4 MG PO PRN (17:32)
[2019-07-28] MEDS: Effexor ER 37.5 MG PO SCH (21:06)
[2019-07-28] MEDS: TOPIRAMATE PO SCH (21:07)
[2019-07-28] MEDS: Sodium Chloride 0.9% W/ 20 mEq KCl/LITER 1,000 ML IV SCH ×2 (21:13→21:15)
[2019-07-29] MEDS: Zofran 4 MG/2 ML VIAL IV PRN ×2 (00:42→11:51)
[2019-07-29 04:51] LABS: Hematocrit 31.2 % (35-47); Hemoglobin 9.8 gm/dl (12.0-16.0); Mean Cell Volume 97.2 fl (78-100); Mean Corpuscular Hemoglobin 30.5 pg (26-32); Mean Corpuscular Hgb Concent. 31.4 g/dl (32-36); Mean Platelet Volume 9.5 fl (7.5-11.0); Platelet Count 421 K/mm3 (150-450); Red Blood Count 3.21 M/mm3 (4.1-5.4); Red Cell Distribution Width 15.7 % (11.5-14.0); White Blood Count 6.3 K/mm3 (4.0-10.5)
[2019-07-29 05:05] LABS: INR 1.22 (0.8-3.0); PROTIME 13.8 SECONDS (9.95-12.35)
[2019-07-29 05:14] LABS: ALBUMIN 2.6 g/dL (3.5-5.0); ALKALINE PHOSPHATASE 46 U/L (38-126); ANION GAP 10.1 MEQ/L (5-15); BLOOD UREA NITROGEN 4 mg/dL (7-17); CHLORIDE 108 mmol/L (98-107); Calcium 8.3 mg/dL (8.4-10.2); Carbon Dioxide 24 mmol/L (22-30); Creatinine 1 0.58 mg/dL (0.52-1.04); Glucose 93 mg/dL (74-106); Potassium 3.8 mmol/L (3.5-5.1); SGOT/AST 15 U/L (14-36); SGPT/ALT 9 U/L (0-35); SODIUM 139 mmol/L (137-145); Total Protein 5.4 g/dL (6.3-8.2)
[2019-07-29] MEDS: FLAGYL 500 MG IVPB 500 MG/100 ML BAG IV SCH ×3 (06:16→21:14)
[2019-07-29] MEDS: VANCOMYCIN 1 GRAM/200 ML BAG 1 GM/200 ML PIGGYBACK IV SCH ×2 (09:56→22:55)
[2019-07-29] MEDS: ENOXAPARIN SODIUM SQ SCH (09:57)
[2019-07-29] MEDS: PROTONIX 40 MG IV IV SCH (09:57)
[2019-07-29] MEDS: Klor Con 10 MEQ PO SCH (09:57)
[2019-07-29] MEDS: PATIENT OWN MEDICATION IH SCH ×3 (10:05→21:02)
[2019-07-29] MEDS: Valium 5 MG PO PRN ×2 (13:23→22:47)
[2019-07-29] MEDS: Norco 10/325 MG Tablet PO PRN (21:13)
[2019-07-29] MEDS: TOPIRAMATE PO SCH (21:13)
[2019-07-29] MEDS: Sodium Chloride 0.9% W/ 20 mEq KCl/LITER 1,000 ML IV SCH (21:14)
[2019-07-29] MEDS: Effexor ER 37.5 MG PO SCH (21:15)
[2019-07-29] MEDS: ZOFRAN ODT 4 MG PO PRN (22:55)
[2019-07-30] MEDS: Norco 10/325 MG Tablet PO PRN ×2 (03:39→08:10)
[2019-07-30 04:11] VITALS: PULSE 81; O2SAT 97
[2019-07-30] MEDS: FLAGYL 500 MG IVPB 500 MG/100 ML BAG IV SCH (05:43)
[2019-07-30 07:21] VITALS: BP 139/66
[2019-07-30] MEDS: ENOXAPARIN SODIUM SQ SCH ×2 (08:04→08:09)
[2019-07-30] MEDS: Klor Con 10 MEQ PO SCH (08:05)
[2019-07-30] MEDS: PROTONIX 40 MG IV IV SCH (08:06)
[2019-07-30] MEDS: VANCOMYCIN 1 GRAM/200 ML BAG 1 GM/200 ML PIGGYBACK IV SCH (08:13)
--- NOTE | 2019-07-30 08:55 | PCM.NOTE ---
Date and Time: 07/28/19 0855 Subjective Assessment: 63 yr old female seen and examined this am. Patient reports that she still has a decreased appetite. She denies abdominal pain and is having regular BMs. Patient denies any black stools like she was having when she was initially admitted. Patient reports she is getting up and moving around during the day. She did have a headache overnight and has hx of migraines. Objective Exam Wound Assessment: Skin/Wound Assessment Wound/Incision Assessment Start: 07/28/19 23: 24 Text: Status: Active Freq: Q6H Protocol: Document 07/30/19 01:00 LB (Rec: 07/30/19 01:13 LB [id number]) Wound/Incision Assessment Anterior Medial Abdomen Wound Assessment Shift Assessment Wound Type Incision Wound Stage Non Pressure Wound Dressing Status Dry & Intact Comment dressing DCI Wound Photo Photo Taken No OBJECTIVE DATA Vital Signs: Vital Signs - 24 hr Temp Pulse Resp BP Pulse Ox 07/30/19 07:41 97 07/30/19 07:20 98.3 F 81 18 139/66 97 07/30/19 04:00 97.9 F 81 20 122/73 97 07/30/19 00:00 98.6 F 83 17 109/56 98 07/29/19 21:02 67 16 96 07/29/19 20:00 98.3 F 82 17 138/80 97 07/29/19 16:00 98.0 F 88 18 119/81 94 L 07/29/19 11:18 97.6 F 70 20 130/72 96 Pain Assessment - Last Documented Pain Intensity 4 Pain Scale Used 0-10 Pain Scale Intake and Output: Intake & Output 07/27/19 07/28/19 07/29/19 07/30/19 11:59 11:59 11:59 11:59 Intake Total 3156 3312 3323 2561 Output Total 850 2700 2000 700 Balance 2306 612 1323 1861 Weight 78.9 kg 78.5 kg 76 kg 77.3 kg Multi-Disciplinary Progress Notes: Multi-Disciplinary Progress Notes 07/29/19 12:49 Case Management Note by Porsha Hollis NO CHANGE IN DC PLANS. PATIENT STILL PLANNING ON A SWINGBED STAY. DR. CONTRERAS STATED SHE DID NOT WANT TO SWING PATIENT UNTIL SHE WAS EATING. Initialized on 07/29/19 12:49 - END OF NOTE
--- NOTE | 2019-07-30 08:56 | PCM.NOTE ---
Date and Time: 07/29/19 0855 Objective Exam Wound Assessment: Skin/Wound Assessment Wound/Incision Assessment Start: 07/28/19 23: 24 Text: Status: Active Freq: Q6H Protocol: Document 07/30/19 01:00 LB (Rec: 07/30/19 01:13 LB [id number]) Wound/Incision Assessment Anterior Medial Abdomen Wound Assessment Shift Assessment Wound Type Incision Wound Stage Non Pressure Wound Dressing Status Dry & Intact Comment dressing DCI Wound Photo Photo Taken No OBJECTIVE DATA Vital Signs: Vital Signs - 24 hr Temp Pulse Resp BP Pulse Ox 07/30/19 07:41 97 07/30/19 07:20 98.3 F 81 18 139/66 97 07/30/19 04:00 97.9 F 81 20 122/73 97 07/30/19 00:00 98.6 F 83 17 109/56 98 07/29/19 21:02 67 16 96 07/29/19 20:00 98.3 F 82 17 138/80 97 07/29/19 16:00 98.0 F 88 18 119/81 94 L 07/29/19 11:18 97.6 F 70 20 130/72 96 Pain Assessment - Last Documented Pain Intensity 4 Pain Scale Used 0-10 Pain Scale Intake and Output: Intake & Output 07/27/19 07/28/19 07/29/19 07/30/19 11:59 11:59 11:59 11:59 Intake Total 3156 3312 3323 2561 Output Total 850 2700 2000 700 Balance 2306 612 1323 1861 Weight 78.9 kg 78.5 kg 76 kg 77.3 kg Multi-Disciplinary Progress Notes: Multi-Disciplinary Progress Notes 07/29/19 12:49 Case Management Note by Porsha Hollis NO CHANGE IN DC PLANS. PATIENT STILL PLANNING ON A SWINGBED STAY. DR. CONTRERAS STATED SHE DID NOT WANT TO SWING PATIENT UNTIL SHE WAS EATING. Initialized on 07/29/19 12:49 - END OF NOTE
--- NOTE | 2019-07-30 08:56 | PCM.NOTE ---
Date and Time: 07/30/19 0856 Objective Exam Wound Assessment: Skin/Wound Assessment Wound/Incision Assessment Start: 07/28/19 23: 24 Text: Status: Active Freq: Q6H Protocol: Document 07/30/19 01:00 LB (Rec: 07/30/19 01:13 LB [id number]) Wound/Incision Assessment Anterior Medial Abdomen Wound Assessment Shift Assessment Wound Type Incision Wound Stage Non Pressure Wound Dressing Status Dry & Intact Comment dressing DCI Wound Photo Photo Taken No OBJECTIVE DATA Vital Signs: Vital Signs - 24 hr Temp Pulse Resp BP Pulse Ox 07/30/19 07:41 97 07/30/19 07:20 98.3 F 81 18 139/66 97 07/30/19 04:00 97.9 F 81 20 122/73 97 07/30/19 00:00 98.6 F 83 17 109/56 98 07/29/19 21:02 67 16 96 07/29/19 20:00 98.3 F 82 17 138/80 97 07/29/19 16:00 98.0 F 88 18 119/81 94 L 07/29/19 11:18 97.6 F 70 20 130/72 96 Pain Assessment - Last Documented Pain Intensity 4 Pain Scale Used 0-10 Pain Scale Intake and Output: Intake & Output 07/27/19 07/28/19 07/29/19 07/30/19 11:59 11:59 11:59 11:59 Intake Total 3156 3312 3323 2561 Output Total 850 2700 2000 700 Balance 2306 612 1323 1861 Weight 78.9 kg 78.5 kg 76 kg 77.3 kg Multi-Disciplinary Progress Notes: Multi-Disciplinary Progress Notes 07/29/19 12:49 Case Management Note by Porsha Hollis NO CHANGE IN DC PLANS. PATIENT STILL PLANNING ON A SWINGBED STAY. DR. CONTRERAS STATED SHE DID NOT WANT TO SWING PATIENT UNTIL SHE WAS EATING. Initialized on 07/29/19 12:49 - END OF NOTE
[2019-07-30] MEDS ORDERED: PATIENT OWN MEDICATION IH SCH (19:00)
== END 2019-07-30 11:00 | disposition swing bed (61) | DRG 863 ==
LOC: ED 16:43 → MED SURG 23:48 → OBSVTOIN 07-24 09:00
PROVIDERS: ADMIT Family Medicine; ATTEND Family Medicine
DX: T81.41XA Infection following a procedure, superficial incisional surgical site, initial encounter (principal); K92.2 Gastrointestinal hemorrhage, unspecified; G89.18 Other acute postprocedural pain; R19.7 Diarrhea, unspecified; R10.9 Unspecified abdominal pain; D64.9 Anemia, unspecified; Z98.890 Other specified postprocedural states; F41.9 Anxiety disorder, unspecified; I10 Essential (primary) hypertension; R51 Headache; Z79.899 Other long term (current) drug therapy
CPT/HCPCS: 36000; 36415; 36430; 74176; 80048; 80053; 80202; 82150; 83605; 83690; 83735; 85014; 85018; 85025; 85027; 85610; 86850; 86900; 86901; 86922; 87507; 94760; 96360; 96361; 96372; 96374; 96375; 99285; J1170; J1650; J2405; J2550; L0625; P9016; Q0162; A9270-GY; J3370

== ENCOUNTER 2019-07-30 09:52 | Inpatient (IN) | payer MEDICARE, OTHER ==
[2019-07-30] MEDS ORDERED: Aplisol ID ONE (11:00)
[2019-07-30] MEDS ORDERED: Lidoderm Patch 5% TP PRN (11:00)
[2019-07-30] MEDS ORDERED: Bactroban OINTMENT TP PRN (11:00)
[2019-07-30] MEDS ORDERED: MEDICATION INTERVENTION PO SCH (11:00)
[2019-07-30] MEDS ORDERED: VENTOLIN COMMON CANISTER IH PRN (11:00)
[2019-07-30] MEDS ORDERED: MEDICATION INTERVENTION MC SCH (11:00)
[2019-07-30] MEDS ORDERED: KENALOG 0.1% CREAM 15 GM TP PRN (11:00)
[2019-07-30] MEDS ORDERED: IMODIUM 2 MG PO PRN (11:00)
[2019-07-30] MEDS ORDERED: TYLENOL 325 MG PO PRN (11:00)
[2019-07-30] MEDS: Norco 10/325 MG Tablet PO PRN ×2 (14:14→22:02)
[2019-07-30] MEDS: FLAGYL 500 MG IVPB 500 MG/100 ML BAG IV SCH ×2 (14:14→22:00)
[2019-07-30] MEDS: PATIENT OWN MEDICATION IH SCH (17:44)
--- NOTE | 2019-07-30 21:36 | PCM.NOTE ---
Date and Time: 07/28/19 1200 OBJECTIVE DATA Vital Signs: Vital Signs - 24 hr Temp Pulse Resp BP Pulse Ox 07/30/19 21:21 98.1 F 86 18 117/61 97 07/30/19 20:00 98.1 F 86 18 117/61 97 07/30/19 17:45 86 18 96 07/30/19 13:19 93 L 07/30/19 11:12 98.3 F 81 18 139/66 97 Pain Assessment - Last Documented Pain Intensity 0 Pain Scale Used 0-10 Pain Scale Intake and Output: Intake & Output 07/28/19 07/29/19 07/30/19 07/31/19 11:59 11:59 11:59 11:59 Intake Total 1440 Output Total 1700 Balance -260 Weight 77.3 kg Multi-Disciplinary Progress Notes: Multi-Disciplinary Progress Notes 07/30/19 14:53 Nutrition Note by Kya Kaiser F/u Note: Pt to swingbed within 7 days of Nutrition Assessment d/t deconditioning r/t post -op diarrhea, abd pain. Diet upgraded from bland to regular. No PO documented on this diet. Prior PO was poor at 25%. Adm wt 77.3kg. Labs 07/29: BUN 4, alb 2.6, hgb 9.8, hct 31.2. If PO remains poor and diarrhea subsides, Pt may benefit from addition of ONS. Goal remains. Will monitor and f/u prn. GENA Mtz Initialized on 07/30/19 14:53 - END OF NOTE
[2019-07-30] MEDS: Effexor ER 37.5 MG PO SCH (22:01)
[2019-07-30] MEDS: TOPIRAMATE PO SCH (22:01)
[2019-07-30] MEDS: VANCOMYCIN 1 GRAM/200 ML BAG 1 GM/200 ML PIGGYBACK IV SCH (23:02)
[2019-07-31] MEDS: Norco 10/325 MG Tablet PO PRN ×2 (02:43→08:24)
[2019-07-31] MEDS: FLAGYL 500 MG IVPB 500 MG/100 ML BAG IV SCH ×3 (05:18→21:50)
[2019-07-31] MEDS: Sodium Chloride 0.9% W/ 20 mEq KCl/LITER 1,000 ML IV SCH (08:00)
[2019-07-31] MEDS: VANCOMYCIN 1 GRAM/200 ML BAG 1 GM/200 ML PIGGYBACK IV SCH ×2 (08:20→22:50)
[2019-07-31] MEDS: PROTONIX 40 MG IV IV SCH (08:23)
[2019-07-31] MEDS: Klor Con 10 MEQ PO SCH (08:24)
[2019-07-31] MEDS: ENOXAPARIN SODIUM SQ SCH (08:29)
[2019-07-31] MEDS ORDERED: Aplisol ID SCH (10:00)
[2019-07-31] MEDS: Zofran 4 MG/2 ML VIAL IV PRN (15:29)
[2019-07-31] MEDS: PATIENT OWN MEDICATION IH SCH (17:12)
[2019-07-31] MEDS: Effexor ER 37.5 MG PO SCH (21:50)
[2019-07-31] MEDS: TOPIRAMATE PO SCH (21:50)
[2019-08-01] MEDS: FLAGYL 500 MG IVPB 500 MG/100 ML BAG IV SCH ×3 (05:43→21:55)
[2019-08-01] MEDS: PATIENT OWN MEDICATION IH SCH (07:34)
[2019-08-01] MEDS: Sodium Chloride 0.9% W/ 20 mEq KCl/LITER 1,000 ML IV SCH (07:34)
[2019-08-01] MEDS: PROTONIX 40 MG IV IV SCH (08:45)
[2019-08-01] MEDS: Klor Con 10 MEQ PO SCH (08:45)
[2019-08-01] MEDS: ENOXAPARIN SODIUM SQ SCH (08:45)
[2019-08-01] MEDS: Norco 10/325 MG Tablet PO PRN ×3 (08:50→19:32)
[2019-08-01] MEDS: ZOFRAN ODT 4 MG PO PRN (08:51)
[2019-08-01] MEDS: VANCOMYCIN 1 GRAM/200 ML BAG 1 GM/200 ML PIGGYBACK IV SCH ×2 (08:51→22:44)
[2019-08-01] MEDS: Zofran 4 MG/2 ML VIAL IV PRN (16:33)
[2019-08-01] MEDS: TOPIRAMATE PO SCH (21:56)
[2019-08-01] MEDS: Effexor ER 37.5 MG PO SCH (21:56)
[2019-08-01] MEDS: Valium 5 MG PO PRN (23:48)
[2019-08-02] MEDS: FLAGYL 500 MG IVPB 500 MG/100 ML BAG IV SCH ×3 (05:32→21:04)
[2019-08-02] MEDS: Norco 10/325 MG Tablet PO PRN ×2 (08:13→21:12)
[2019-08-02] MEDS: Klor Con 10 MEQ PO SCH (09:30)
[2019-08-02] MEDS ORDERED: TROUGH DRUG LEVELS IJ ONE (09:30)
[2019-08-02] MEDS: ENOXAPARIN SODIUM SQ SCH ×2 (09:30→09:37)
[2019-08-02] MEDS: PROTONIX 40 MG IV IV SCH (09:31)
[2019-08-02 10:19] LABS: Creatinine 1 0.56 mg/dL (0.52-1.04)
[2019-08-02] MEDS: VANCOMYCIN 1 GRAM/200 ML BAG 1 GM/200 ML PIGGYBACK IV SCH ×2 (10:41→22:10)
[2019-08-02] MEDS: ZOFRAN ODT 4 MG PO PRN (18:14)
[2019-08-02] MEDS: PATIENT OWN MEDICATION IH SCH (21:00)
[2019-08-02] MEDS: TOPIRAMATE PO SCH (21:04)
[2019-08-02] MEDS: Effexor ER 37.5 MG PO SCH (21:04)
[2019-08-03] MEDS: Valium 5 MG PO PRN ×2 (00:17→21:49)
[2019-08-03] MEDS: PATIENT OWN MEDICATION IH SCH ×2 (01:18→19:37)
[2019-08-03] MEDS: FLAGYL 500 MG IVPB 500 MG/100 ML BAG IV SCH ×3 (06:27→21:43)
[2019-08-03] MEDS: Klor Con 10 MEQ PO SCH (10:14)
[2019-08-03] MEDS: VANCOMYCIN 1 GRAM/200 ML BAG 1 GM/200 ML PIGGYBACK IV SCH ×2 (10:15→22:24)
[2019-08-03] MEDS: PROTONIX 40 MG IV IV SCH (10:15)
[2019-08-03] MEDS: ENOXAPARIN SODIUM SQ SCH (10:33)
[2019-08-03] MEDS: Norco 10/325 MG Tablet PO PRN ×3 (10:52→21:49)
[2019-08-03] MEDS: ZOFRAN ODT 4 MG PO PRN (16:38)
[2019-08-03] MEDS: TOPIRAMATE PO SCH (21:43)
[2019-08-03] MEDS: Effexor ER 37.5 MG PO SCH (21:43)
[2019-08-04] MEDS: FLAGYL 500 MG IVPB 500 MG/100 ML BAG IV SCH (06:25)
[2019-08-04 08:25] LABS: Basophil (Absolute #) 0.09 (0-0.4); Eosinophil % 5.3 % (0.00-5.0); Eosinophil (Absolute #) 0.46 (0-0.5); Hematocrit 37.8 % (35-47); Hemoglobin 11.9 gm/dl (12.0-16.0); Lymphocytes % 26.3 % (24.0-44.0); Mean Cell Volume 97.4 fl (78-100); Mean Corpuscular Hemoglobin 30.7 pg (26-32); Mean Corpuscular Hgb Concent. 31.5 g/dl (32-36); Mean Platelet Volume 8.7 fl (7.5-11.0); Monocytes % 13.7 % (0.0-12.0); Neutrophil % 53.7 % (36.0-66.0); Platelet Count 384 K/mm3 (150-450); Red Blood Count 3.88 M/mm3 (4.1-5.4); Red Cell Distribution Width 16.4 % (11.5-14.0); White Blood Count 8.8 K/mm3 (4.0-10.5)
[2019-08-04] MEDS: ENOXAPARIN SODIUM SQ SCH (10:00)
[2019-08-04] MEDS: Klor Con 10 MEQ PO SCH (10:04)
[2019-08-04] MEDS: VANCOMYCIN 1 GRAM/200 ML BAG 1 GM/200 ML PIGGYBACK IV SCH ×2 (10:04→21:17)
[2019-08-04] MEDS: PROTONIX 40 MG IV IV SCH (10:04)
[2019-08-04] MEDS: Norco 10/325 MG Tablet PO PRN ×3 (10:06→21:22)
[2019-08-04] MEDS: ZOFRAN ODT 4 MG PO PRN (10:41)
[2019-08-04] MEDS ORDERED: Vancomycin 1GM/ Ns 250ML*** 250 ML IV ONE (21:14)
[2019-08-04] MEDS: Zofran 4 MG/2 ML VIAL IV PRN (21:22)
[2019-08-04] MEDS: TOPIRAMATE PO SCH (21:23)
[2019-08-04] MEDS: Effexor ER 37.5 MG PO SCH (21:23)
[2019-08-04] MEDS: PATIENT OWN MEDICATION IH SCH (22:00)
[2019-08-04] MEDS: Valium 5 MG PO PRN (22:54)
[2019-08-05 07:17] VITALS: BP 132/67; PULSE 81; O2SAT 97
[2019-08-05] MEDS: Norco 10/325 MG Tablet PO PRN (09:02)
[2019-08-05] MEDS: Klor Con 10 MEQ PO SCH (09:02)
[2019-08-05] MEDS: PROTONIX 40 MG IV IV SCH (09:02)
[2019-08-05] MEDS: ENOXAPARIN SODIUM SQ SCH (09:12)
--- NOTE | 2019-08-05 09:44 | DS ---
SWING-BED DISCHARGE DIAGNOSES: 1) ABDOMINAL WOUND INFECTION. 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 HOSPITAL COURSE: The patient is a 63 year-old white female who had been seen by the [facility]AL[facility] SPECIALIST Oncologist in [place]. She had surgery performed and apparently had revealed a jelly belly-type of process going on with carcinomatosis of the abdomen. The patient had been sent home on ibuprofen for pain relief and blood thinners. The patient had problems with GI bleeding apparently bringing her to the hospital. She did require transfusion of 2 units of blood. After which the patient was also noted to have problems with the wound becoming cellulitis at the superior and inferior segments of this which continued to progress to get worse. We placed her on IV antibiotics of IV Vancomycin and metronidazole. The patient was discharged from the hospital to swing-bed care with the same medical regimen with wound care dressing changes and continued IV antibiotics. The patient continued to slowly improve until the morning of 08/05/2019 where she was looking pretty good with no fever. White count was just slightly above 8,000. We made the decision after talking with pharmacy having a wound culture which was only positive for skin contaminants. We discharged her home with home health care with dressing changes by physical therapy and on clindamycin 300 mg t.i.d. We asked the patient to follow up with her oncologist in [place] and surgeon as well. She also has Dr. Foley here locally to see for oncology which she will see him after discharge as well. The patient will be discharged home at this time. She is also instructed to follow up with her primary care provider, Laurie Oviedo, within the next week or so after discharge as well.
[2019-08-05] MEDS: VANCOMYCIN 1 GRAM/200 ML BAG 1 GM/200 ML PIGGYBACK IV SCH (11:37)
[2019-08-10] MEDS ORDERED: Aplisol ID SCH (10:00)
== END 2019-08-05 14:45 | disposition home health service (06) | DRG 863 ==
LOC: MED SURG 11:00
PROVIDERS: ADMIT Family Medicine; ATTEND Family Medicine
DX: T81.40XA Infection following a procedure, unspecified, initial encounter (principal); C80.0 Disseminated malignant neoplasm, unspecified
CPT/HCPCS: 36415; 80202; 82565; 85025; 94640; 94760; J1650; J2405; J3370; L0625; Q0162; 97110-GP; A9270-GY

== ENCOUNTER 2020-06-24 09:35 | Observation (INO) | payer MEDICARE, OTHER ==
--- NOTE | 2020-06-21 14:00 | HP ---
DATE OF SURGERY: 06/24/2020 HISTORY OF PRESENT ILLNESS: The patient presents with a right thyroid nodule. It has been tracked and appears to have been growing. She desires removal. PAST MEDICAL HISTORY: Basal cell carcinoma. Skin cancer. Anemia. Anxiety. Depression. Chronic obstructive pulmonary disease. Gastroesophageal reflux disease. Rheumatoid arthritis. Osteoarthritis. Chronic back pain. Gallbladder problem. PAST SURGICAL HISTORY: Skin lesion removal. Back surgery. Tubal ligation. Laparoscopic exam for abdominal fluid cytology. ALLERGIES: ROCEPHIN. CEPHALOSPORIN. LATEX. MEDICATIONS: Albuterol, ibandronate, Breo Ellipta, vitamin B12, diclofenac, Toprol, Effexor, Pepcid, gabapentin, Warren, levocetirizine, Linzess, Lisinopril, Maxalt, meclizine, steroid, Cerovite, diphenoxylate, Singulair, multivitamin, pantoprazole, potassium chloride, Pravastatin, topiramate, tizanidine. FAMILY HISTORY: Colon cancer. SOCIAL HISTORY: None reported. REVIEW OF SYSTEMS: CONSTITUTIONAL: Denies fever or chills. CHEST: Denies shortness of breath. CVS: Denies chest pain. ABDOMEN: Denies abdominal pain, nausea, vomiting, diarrhea, constipation or rectal bleeding. INTEGUMENTARY: Negative. PHYSICAL EXAMINATION: GENERAL: No acute distress. CHEST: Nonlabored. No shortness of breath. CVS: Regular rate and rhythm. ABDOMEN: Soft, nontender to palpation. EXTREMITIES: No edema. NEUROLOGIC: Alert. PSYCHIATRIC: Appropriate. IMPRESSION: Enlarging right thyroid nodule. PLAN: Right thyroid lobectomy possible total with Dr. Carlito Marley. As dictated by Rena Mitchell NP.
[~2020-06-24 09:35] MED LIST changes: -DIPRIVAN 200 MG/20 ML IV ONE; -Kenalog-40 IM ONE; -Sensorcaine 0.25% 10 ML IJ ONE
[2020-06-24] MEDS ORDERED: Lactated Ringers 1,000 ML IV SCH (10:30)
[2020-06-24 10:39] LABS: ALBUMIN 3.8 g/dL (3.5-5.0); ALKALINE PHOSPHATASE 62 U/L (38-126); BLOOD UREA NITROGEN 22 mg/dL (7-17); CHLORIDE 111 mmol/L (98-107); Calcium 9.1 mg/dL (8.4-10.2); Carbon Dioxide 24 mmol/L (22-30); Creatinine 1 0.67 mg/dL (0.52-1.04); EST GLOMERULAR FILTRATION RATE > 60.0 ML/MIN; Glucose 103 mg/dL (74-106); Potassium 3.8 mmol/L (3.5-5.1); SGOT/AST 24 U/L (14-36); SGPT/ALT 18 U/L (0-35); SODIUM 141 mmol/L (137-145); Total Protein 6.8 g/dL (6.3-8.2)
[2020-06-24] MEDS ORDERED: BRIDION 200MG/2ML IV ONE (10:52)
[2020-06-24] MEDS ORDERED: Xylocaine-Mpf 2% 5 Ml Vial ONE (10:52)
[2020-06-24] MEDS ORDERED: TORAdol 30 mg Injection ONE (10:52)
[2020-06-24] MEDS ORDERED: Zofran 4 MG/2 ML VIAL ONE ×2 (10:52→14:01)
[2020-06-24] MEDS ORDERED: Quelicin Fliptop 200 MG/10 ML ONE (10:52)
[2020-06-24] MEDS ORDERED: SUBLIMAZE 250 MCG/5 ML ONE (10:52)
[2020-06-24] MEDS ORDERED: DIPRIVAN 200 MG/20 ML IV ONE (10:52)
[2020-06-24] MEDS ORDERED: Decadron 4 MG INJ ONE (10:52)
[2020-06-24] MEDS ORDERED: Versed 2 MG/2 ML Injection ONE (10:52)
[2020-06-24] MEDS ORDERED: Pre-Attached Lta Kit TP ONE (11:12)
[2020-06-24] MEDS ORDERED: Ephedrine Sulfate 50 MG/ML ONE (13:13)
[2020-06-24] MEDS ORDERED: PHENYLEPHRINE HCL ONE (13:13)
[2020-06-24] MEDS ORDERED: Sensorcaine 0.25% 10 ML ONE ×2 (13:23→13:27)
[2020-06-24 13:53] LABS: Appearance CLEAR (CLEAR); Bilirubin NEGATIVE (NEGATIVE); Blood SMALL Ery/ul (0-5); Glucose NEGATIVE (NEGATIVE); Hyaline Casts 0-2 /LPF (0-2); Ketones NEGATIVE (NEGATIVE); Leukocyte Esterase NEGATIVE (NEGATIVE); Mucus SLIGHT /HPF (NEGATIVE); Nitrite NEGATIVE (NEGATIVE); Protein,Urine Dip NEGATIVE (Negative); Specific Gravity 1.028 (1.005-1.025); Urobilinogen NEGATIVE mg/dL (0-1)
[2020-06-24] MEDS ORDERED: Hydromorphone 1 mg/ml Injection ONE (14:02)
[2020-06-24] MEDS ORDERED: SUBLIMAZE 100 MCG/2 ML ONE (14:02)
[2020-06-24] MEDS ORDERED: TYLENOL 325 MG PO PRN (15:18)
[2020-06-24] MEDS ORDERED: FEVERALL 650 MG RC PRN (15:19)
[2020-06-24] MEDS ORDERED: Zofran 4 MG/2 ML VIAL IV PRN (15:20)
[2020-06-24] MEDS: Dextrose 5% -0.45 NaCl 1000 ML 1,000 ML IV SCH (15:51)
[2020-06-24] MEDS ORDERED: Lidoderm Patch 5% TP PRN (15:58)
[2020-06-24] MEDS ORDERED: TRIAMCINOLONE 0.025% TP PRN (15:58)
[2020-06-24] MEDS ORDERED: ANTIVERT 25 MG PO PRN (15:58)
[2020-06-24] MEDS ORDERED: ZOFRAN ODT 4 MG PO PRN (15:58)
[2020-06-24] MEDS ORDERED: Protonix 40MG Tablet PO PRN (15:58)
[2020-06-24] MEDS ORDERED: RIZATRIPTAN BENZOATE 10 MG PO PRN (15:58)
[2020-06-24] MEDS ORDERED: Bactroban OINTMENT TP PRN (15:58)
[2020-06-24] MEDS ORDERED: Norco 10/325 MG Tablet PO PRN (15:58)
[2020-06-24] MEDS ORDERED: Lomotil PO PRN (15:58)
[2020-06-24] MEDS ORDERED: NON-FORMULARY ITEM (Fluticasone/Vilanterol [Breo Ellipta 200-25 Mcg Inh] 1 EACH) IH PRN (15:58)
[2020-06-24] MEDS ORDERED: Voltaren GEL TP PRN (15:58)
[2020-06-24] MEDS ORDERED: DESOXIMETASONE TP PRN (15:58)
[2020-06-24] MEDS ORDERED: Lasix 40 MG PO PRN (15:58)
[2020-06-24] MEDS ORDERED: PHENERGAN 25 MG PO SCH (16:00)
[2020-06-24] MEDS ORDERED: RIMEGEPANT SULFATE 75 MG PO SCH (16:00)
[2020-06-24] MEDS ORDERED: Ventolin Hfa MDI IH SCH (16:00)
[2020-06-24] MEDS ORDERED: Advair Hfa 230/21 Mcg COMMON CANISTER IH PRN (16:20)
[2020-06-24] MEDS ORDERED: VENTOLIN COMMON CANISTER IH PRN (16:22)
[2020-06-24] MEDS: NORCO 5/325 MG PO PRN ×2 (16:23→21:22)
[2020-06-24] MEDS ORDERED: CORTISONE 1% CREAM TP PRN (16:31)
[2020-06-24] MEDS ORDERED: MEDICATION INTERVENTION MC SCH ×2 (16:45)
[2020-06-24] MEDS ORDERED: MEDICATION INTERVENTION MC PRN (16:51)
[2020-06-24] MEDS: Pepcid 20 MG PO SCH (21:22)
[2020-06-24] MEDS ORDERED: VENLAFAXINE HCL PO SCH (22:00)
[2020-06-24] MEDS ORDERED: TOPIRAMATE PO SCH ×2 (22:00)
[2020-06-24] MEDS ORDERED: Singulair 10 MG PO SCH (22:00)
[2020-06-24] MEDS ORDERED: ZOCOR 20MG PO SCH (22:00)
[2020-06-24] MEDS ORDERED: Effexor ER 37.5 MG PO SCH (22:00)
[2020-06-25] MEDS: NORCO 5/325 MG PO PRN ×3 (04:26→13:06)
[2020-06-25] MEDS: Pepcid 20 MG PO SCH (09:00)
--- NOTE | 2020-06-25 09:08 | OP ---
SURGERY DATE/TIME: 06/24/2020 1113 PREOPERATIVE DIAGNOSIS: Enlarging right thyroid mass 3 cm. POSTOPERATIVE DIAGNOSIS: Enlarging right thyroid mass 3 cm. PROCEDURE: Right thyroid lobectomy. SURGEON: Carlito Marley M.D. DISH WASHER: Luis Marley M.D. ANESTHESIA: General. COMPLICATIONS: None. ESTIMATED BLOOD LOSS: 100 cc. DRAINS: None. CONDITION: Stable. INDICATION: A patient requiring exploration thyroidectomy as indicated. DESCRIPTION OF PROCEDURE: The patient was taken to surgery. General anesthetic. Routine prep and drape. Time out performed. Traditional curvilinear neck incision fashioned deliberately. Strap muscles parted in the midline. Thyroid exposed. Left side was palpated. It was small and was normal. There was a generous nodule on the right side, right mid to lower 3 to 3.5 cm. The little thyroid vein was taken. The lobe was able to be rolled up lightly. There was a little bit of adherence to strap muscles which were taken down. Dissection immediately on the capsule. The superior pole was able to be rolled up and the superior vessel taken. The inferior pole rolled up and inferior vessel taken. The gland was then rolled with the medial to medial cephalad area being meticulously dissected on the thyroid capsule with stimulating the tissue. The nerve area was defined. Dissection was immediately on the capsule with small bites and clips only through this area and at this time the thyroid was safely medial to the recurrent nerve. The recurrent nerve still simulated well. It was not directly visualized but there was just probably a single layer or two of thin tissue over top of this. The trajectory of this nerve was absolutely visible. Gland rolled to the isthmus and was taken with a single tie of 2-0 silk transected. Frozen section returned benign follicular adenoma. Field was dry and closed with 3-0 Vicryl, 3-0 Vicryl, 4-0 Vicryl and Steri-Strips. The patient tolerated the procedure satisfactorily.
[2020-06-25] MEDS ORDERED: Zanaflex 4 MG PO SCH (10:00)
[2020-06-25] MEDS ORDERED: NON-FORMULARY ITEM (Linaclotide [Linzess] 145 MCG) PO SCH (10:00)
[2020-06-25] MEDS ORDERED: THERAGRAN MULTIVITAMIN PO SCH (10:00)
[2020-06-25] MEDS ORDERED: Cyanocobalamin B-12 1000 MCG/ML IM SCH (10:00)
[2020-06-25] MEDS ORDERED: NEURONTIN 300 MG PO SCH (10:00)
[2020-06-25] MEDS ORDERED: MELOXICAM PO SCH (10:00)
[2020-06-25] MEDS ORDERED: Klor Con 10 MEQ PO SCH (10:00)
[2020-06-25] MEDS ORDERED: CLARITIN 10 MG PO SCH (10:00)
[2020-06-25] MEDS ORDERED: FOLIC ACID PO SCH (10:00)
[2020-06-25] MEDS ORDERED: MULTIVITAMIN PO SCH (10:00)
[2020-06-25] MEDS ORDERED: NON-FORMULARY ITEM (Pravastatin Sodium [Pravachol] 40 MG) PO SCH (10:00)
[2020-06-25] MEDS ORDERED: IRON PO SCH (10:00)
[2020-06-25] MEDS ORDERED: NON-FORMULARY ITEM (Meloxicam [Meloxicam] 15 MG) PO SCH (10:00)
[2020-06-25] MEDS: Dextrose 5% -0.45 NaCl 1000 ML 1,000 ML IV SCH (13:20)
[2020-06-25 16:23] VITALS: BP 135/88; PULSE 88; O2SAT 95
[2020-07-25] MEDS ORDERED: IBANDRONATE SODIUM 150 MG PO SCH (06:00)
== END 2020-06-25 16:25 | disposition home or self-care (01) ==
LOC: MED SURG 09:35 → EDSTATUS 12:11 → MED SURG 14:43
PROVIDERS: ADMIT Surgery; ATTEND Surgery
DX: D34 Benign neoplasm of thyroid gland (principal); Z85.828 Personal history of other malignant neoplasm of skin; Z79.899 Other long term (current) drug therapy
CPT/HCPCS: 36415; 60220; 80053; 81001; 87086; 93005; 94760; G0378; J0330; J1100; J1170; J1885; J2250; J2370; J2405; J2704; J3010; J3420; A9270-GY

== ENCOUNTER 2021-04-07 18:52 | Emergency (ER) | payer MEDICARE, OTHER ==
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
[2021-04-07 20:11] VITALS: BP 95/54; PULSE 64; O2SAT 98
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
== END 2021-04-07 20:17 | disposition home or self-care (01) ==
LOC: ED 18:52
DX: M62.830 Muscle spasm of back (principal); Z79.899 Other long term (current) drug therapy
CPT/HCPCS: 72100; 99283

== ENCOUNTER 2023-10-05 20:45 | Emergency (ER) | payer MEDICARE, OTHER ==
--- NOTE | 2023-10-05 20:51 | ERPHSYRPT ---
- History of Present Illness Time Seen by Provider: 10/05/23 20:51 Source: patient Exam Limitations: no limitations Physician History: This is a 67-year-old white female patient of nurse practitioner Preet who states that she sustained a horse bite (superficially) to the skin overlying anterior lateral aspect of her left humerus. Patient's tetanus status is not up-to-date. Patient states that she can take Augmentin/penicillin type medication. She has in the past and she had no problems with this. Patient has a history of hypertension, asthma, arthritis, rheumatoid arthritis and gastroesophageal reflux disease. The horse bite was approximately 12 hours prior to arrival. Timing/Duration: today Quality: painful Location: extremities (Skin anterior lateral aspect of the left humerus) Associated Symptoms: denies symptoms Allergies/Adverse Reactions: ceftriaxone sodium [From Rocephin] Allergy (Severe, Verified 10/05/23 21:11) resp arrest Cephalosporins Allergy (Severe, Verified 10/05/23 21:11) resp arrest latex Allergy (Verified 10/05/23 21:11) Home Medications: Montelukast Sodium [Singulair] 10 mg PO HS 05/23/15 [History] Albuterol 8 gm Mdi Hfa [Ventolin Hfa MDI] 2 puffs IH UD 05/18/16 [History] Cyanocobalamin 1000 Mcg/ml [Cyanocobalamin B-12 1000 MCG/ML] 1,000 mcg SQ UD 05/18/16 [History] Levocetirizine Dihydrochloride 5 mg PO DAILY 05/18/16 [History] Desoximetasone 15 gm TP BID PRN PRN 04/10/19 [History] Diclofenac Sodium Gel [Voltaren GEL] 100 gm TP QID PRN PRN 04/10/19 [History] Diphenoxylate HCl/Atropine [Lomotil 2.5-0.025 mg Tablet] 1 each PO QIDPRN PRN 04/10/19 [History] Fluticasone/Vilanterol [Breo Ellipta 200-25 Mcg Inhalr] 1 each IH DAILY PRN PRN 04/10/19 [History] Hydrocodone/Acetaminophen [Hydrocodon-Acetaminophn 10-325] 1 each PO Q4HPRN PRN 04/10/19 [History] Lidocaine [Lidoderm] 1 each TP DAILY PRN PRN 04/10/19 [History] Multivitamin/Iron/Folic Acid [Cerovite Advanced Form Tab] 1 each PO DAILY 04/10/19 [History] Mupirocin [Bactroban OINTMENT] 15 gm TP TID PRN PRN 04/10/19 [History] Ondansetron [Ondansetron Odt] 4 mg PO Q8HPRN PRN 04/10/19 [History] Rizatriptan Benzoate [Rizatriptan] 10 mg PO DAILY PRN PRN 04/10/19 [History] Triamcinolone 0.025% Cream [Triamcinolone Acetonide] 453.6 gm TP BID PRN PRN 04/10/19 [History] PANTOPRAZOLE 40 mg Tablet [Protonix 40MG Tablet] 40 mg PO DAILY PRN PRN 07/24/19 [History] Venlafaxine HCl [Venlafaxine HCl ER] 1 cap PO HS 07/24/19 [History] Diclofenac Sodium Gel [Voltaren GEL] 100 gm TP TID PRN 06/14/20 [History] Famotidine 20 mg [Pepcid 20 MG] 20 mg PO BID 06/14/20 [History] Furosemide 40 mg [Lasix 40 MG] 40 mg PO DAILY PRN 06/14/20 [History] Gabapentin [Neurontin] 300 mg PO DAILY 06/14/20 [History] Ibandronate Sodium [Boniva] 150 mg PO UD 06/14/20 [History] Linaclotide [Linzess] 145 mcg PO DAILY 06/14/20 [History] Meclizine HCl 25 mg [Antivert 25 mg] 25 mg PO TID PRN 06/14/20 [History] Meloxicam 15 mg PO DAILY 06/14/20 [History] Potassium Chloride Tab* [Klor Con] 10 meq PO DAILY 06/14/20 [History] Pravastatin Sodium [Pravachol] 40 mg PO DAILY 06/14/20 [History] Promethazine HCl 25 mg PO UD 06/14/20 [History] Rimegepant Sulfate [Nurtec Odt] 75 mg PO UD 06/14/20 [History] Tizanidine HCl 4 mg [Zanaflex 4 MG] 4 mg PO DAILY 06/14/20 [History] Topiramate 2 tab PO HS 06/14/20 [History] Hx Tetanus, Diphtheria Vaccination/Date Given: Yes Hx Influenza Vaccination/Date Given: Yes Hx Pneumococcal Vaccination/Date Given: No Travel Risk - International Travel Have you traveled outside of the country in past 3 weeks: No - Emerging Infectious Disease Are you exhibiting symptoms associated with any current EIDs: No - Review of Systems Constitutional: No Symptoms Eyes: No Symptoms Ears, Nose, & Throat: No Symptoms Respiratory: No Symptoms Cardiac: No Symptoms Abdominal/Gastrointestinal: No Symptoms Genitourinary Symptoms: No Symptoms Musculoskeletal: No Symptoms Skin: Other (Horse bite. Superficial skin mid level left humerus anterior lateral aspect) Neurological: No Symptoms Psychological: No Symptoms Endocrine: No Symptoms Hematologic/Lymphatic: No Symptoms Immunological/Allergic: No Symptoms All Other Systems: Reviewed and Negative - Past Medical History Pertinent Past Medical History: Yes Neurological History: No Pertinent History ENT History: No Pertinent History Cardiac History: Hypertension Respiratory History: Asthma, Bronchitis Endocrine Medical History: No Pertinent History Musculoskeletal History: Arthritis, Rheumatoid Arthritis GI Medical History: GERD History: No Pertinent History Psycho-Social History: Other Female Reproductive Disorders: No Pertinent History Other Medical History: pt states she has PTSD. She has stated past HTN, not medicating now- takes lasix for fluid retention. - Past Surgical History Past Surgical History: Yes Neuro Surgical History: No Pertinent History Cardiac: No Pertinent History Respiratory: Other Gastrointestinal: Appendectomy Genitourinary: No Pertinent History Musculoskeletal: Other Female Surgical History: Hysterectomy, Tubal Ligation Other Surgical History: pt has had bilateral foot correction surgery. rib surgery and skin cancer removal. 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 - Social History Smoking Status: Never smoker Exposure to second hand smoke: No Drug Use: none Patient Lives Alone: No - Nursing Vital Signs Nursing Vital Signs: Initial Vital Signs Temperature 98.1 F 10/05/23 20:45 Pulse Rate 67 10/05/23 20:45 Respiratory Rate 18 10/05/23 20:45 Blood Pressure 155/91 10/05/23 20:45 O2 Sat by Pulse Oximetry 98 10/05/23 20:45 Pain Scale Pain Intensity 0 - Physical Exam General Appearance: no apparent distress, alert, anxiety Eye Exam: PERRL/EOMI, eyes nml inspection Ears, Nose, Throat Exam: normal ENT inspection, moist mucous membranes Neck Exam: normal inspection, non-tender, supple, full range of motion Respiratory Exam: airway intact, No chest tenderness, No respiratory distress Gastrointestinal/Abdomen Exam: No tenderness, No guarding, No rebound Pelvic Exam: not done Rectal Exam: not done Back Exam: normal inspection, normal range of motion, No CVA tenderness, No vertebral tenderness (Superficial skin care) Extremity Exam: normal range of motion, pelvis stable, other (Superficial skin tear anterior lateral aspect skin overlying left humerus mid level) Neurologic Exam: alert, oriented x 3, cooperative, 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, normal mood/affect, nml cerebellar function, nml station & gait Skin Exam: other (See above extremity exam section) Lymphatic Exam: No adenopathy SpO2 Interpretation: normal O2 Delivery: Room Air - Course Nursing assessment & vital signs reviewed: Yes Ordered Tests: Medication Summary Discontinued Medications Generic Name Dose Route Start Last Admin Trade Name Freq PRN Reason Stop Dose Admin Amoxicillin/Clavulanate Potassium 500 mg 10/05/23 21:09 Amox Tr/Potassium Clavulanate 500 Mg Tablet PO 10/05/23 21:10 STAT ONE Diphtheria/Tetanus/Acell Pertussis 0.5 ml 10/05/23 21:10 Tdap --Diph,Pertuss(Acell),Tet Vac/Pf 0.5 Ml Vial IM 10/05/23 21:11 .ONCE ONE - Progress Progress: improved, pain not gone completely, re-examined Progress Note: 10/05/23 21:43 My medical decision making and the assignment of low complexity to this patient's medical issues based on review of the patient's past medical history, review of the patient's medication list, review the patient drug allergy list, history present illness and physical findings on examination. The workup in this patient does not require laboratory radiographic studies. The horse bite was very superficial. Patient is receiving Adacel injection. She does not recall when her last tetanus injection was. Counseled pt/family regarding: diagnosis, need for follow-up Medical Desision Making - Diagnostic Testing Diagnostic test were ordered, analyzed, and reviewed by me: No - Risk of complications The pt has a mod risk of morbidity or mortality based on: Need for prescription drug management - Departure Departure Disposition: Home Clinical Impression: Skin tear, Bitten by horse Condition: Stable Critical Care Time: No Referrals: KIAN PEDRO NP [Primary Care Provider] - Follow up/PCP as directed Additional Instructions: Keep the bite site clean daily with soap and water and cover with a thin layer of antibiotic ointment of choice and a bandage. Take your antibiotics as prescribed. Follow-up with your primary care provider as an outpatient on to make arranges for follow-up appointment next 5 to 7 days. Prescriptions: Amoxicillin/Potassium Clav [Augmentin 500-125 Tablet] 1 each PO TID 5 Days #15 tablet
[2023-10-05 21:01] VITALS: TEMP 98.1
[2023-10-05] MEDS ORDERED: Adacel Vial IM ONE (21:45)
[2023-10-05] MEDS ORDERED: Augmentin 500-125 Tablet ONE (21:45)
[2023-10-05] MEDS: Adacel Vial IM ONE (21:46)
[2023-10-05] MEDS: Augmentin 500-125 Tablet PO ONE (21:46)
[2023-10-05] MEDS ORDERED: BACIGUENT PACKET ONE (21:51)
[2023-10-05] MEDS: BACIGUENT PACKET TP ONE (21:55)
[2023-10-05 21:58] VITALS: BP 158/99; PULSE 60; RESP 16; O2SAT 99
== END 2023-10-05 22:02 | disposition home or self-care (01) ==
LOC: ED 20:45
DX: S41.152A Open bite of left upper arm, initial encounter (principal); W55.11XA Bitten by horse, initial encounter
CPT/HCPCS: 90471; 90715; 99282; A9270-GY

== ENCOUNTER 2023-11-18 17:52 | Emergency (ER) | payer MEDICARE, OTHER ==
[2023-11-18 18:19] VITALS: TEMP 97.7
[2023-11-18] MEDS ORDERED: Sodium Chloride 0.9% 1000 ML 0 ML ONE (19:07)
--- NOTE | 2023-11-18 19:08 | ERPHSYRPT ---
- History of Present Illness Time Seen by Provider: 11/18/23 18:50 Source: patient Exam Limitations: no limitations Patient Subjective Stated Complaint: Diarrhea x 3 days Triage Nursing Assessment: Patient reports to ER with c/o of frequent diarrhea over the last 3 days. Patient states that she is having at least 5 episodes of diarrhea daily and is at times incontinent of stool. Patient reports that stool is bright green "like peas" and "bubbly". Patient denies n/v and abdominal pain. Patient states she has been reading online and believes she has an infection from her cats and that she starting taking some old flagyl 2 days ago to treat this infection. Bowel sounds active x 4 quadrants - abdomen non tender with palpation. Patient resting in bed with easy respirations and does not appear to be in any distress. Physician History: For the past 3 days pt has had green diarrhea; denies abdominal pain, vomiting, nausea, chest pain, shortness of air, fever. Pt states she has a Hx of abdominal cancer operated on in [place] 4 years ago. Allergies/Adverse Reactions: ceftriaxone sodium [From Rocephin] Allergy (Severe, Verified 11/18/23 18:02) resp arrest Cephalosporins Allergy (Severe, Verified 11/18/23 18:02) resp arrest latex Allergy (Verified 11/18/23 18:02) Home Medications: Montelukast Sodium [Singulair] 10 mg PO HS 05/23/15 [History] Albuterol 8 gm Mdi Hfa [Ventolin Hfa MDI] 2 puffs IH UD 05/18/16 [History] Cyanocobalamin 1000 Mcg/ml [Cyanocobalamin B-12 1000 MCG/ML] 1,000 mcg SQ UD 05/18/16 [History] Levocetirizine Dihydrochloride 5 mg PO DAILY 05/18/16 [History] Desoximetasone 15 gm TP BID PRN PRN 04/10/19 [History] Diclofenac Sodium Gel [Voltaren GEL] 100 gm TP QID PRN PRN 04/10/19 [History] Diphenoxylate HCl/Atropine [Lomotil 2.5-0.025 mg Tablet] 1 each PO QIDPRN PRN 04/10/19 [History] Fluticasone/Vilanterol [Breo Ellipta 200-25 Mcg Inhalr] 1 each IH DAILY PRN PRN 04/10/19 [History] Hydrocodone/Acetaminophen [Hydrocodon-Acetaminophn 10-325] 1 each PO Q4HPRN PRN 04/10/19 [History] Lidocaine [Lidoderm] 1 each TP DAILY PRN PRN 04/10/19 [History] Multivitamin/Iron/Folic Acid [Cerovite Advanced Form Tab] 1 each PO DAILY 04/10/19 [History] Mupirocin [Bactroban OINTMENT] 15 gm TP TID PRN PRN 04/10/19 [History] Ondansetron [Ondansetron Odt] 4 mg PO Q8HPRN PRN 04/10/19 [History] Rizatriptan Benzoate [Rizatriptan] 10 mg PO DAILY PRN PRN 04/10/19 [History] Triamcinolone 0.025% Cream [Triamcinolone Acetonide] 453.6 gm TP BID PRN PRN 04/10/19 [History] PANTOPRAZOLE 40 mg Tablet [Protonix 40MG Tablet] 40 mg PO DAILY PRN PRN 07/24/19 [History] Venlafaxine HCl [Venlafaxine HCl ER] 1 cap PO HS 07/24/19 [History] Diclofenac Sodium Gel [Voltaren GEL] 100 gm TP TID PRN 06/14/20 [History] Famotidine 20 mg [Pepcid 20 MG] 20 mg PO BID 06/14/20 [History] Furosemide 40 mg [Lasix 40 MG] 40 mg PO DAILY PRN 06/14/20 [History] Gabapentin [Neurontin] 300 mg PO DAILY 06/14/20 [History] Ibandronate Sodium [Boniva] 150 mg PO UD 06/14/20 [History] Linaclotide [Linzess] 145 mcg PO DAILY 06/14/20 [History] Meclizine HCl 25 mg [Antivert 25 mg] 25 mg PO TID PRN 06/14/20 [History] Meloxicam 15 mg PO DAILY 06/14/20 [History] Potassium Chloride Tab* [Klor Con] 10 meq PO DAILY 06/14/20 [History] Pravastatin Sodium [Pravachol] 40 mg PO DAILY 06/14/20 [History] Promethazine HCl 25 mg PO UD 06/14/20 [History] Rimegepant Sulfate [Nurtec Odt] 75 mg PO UD 06/14/20 [History] Tizanidine HCl 4 mg [Zanaflex 4 MG] 4 mg PO DAILY 06/14/20 [History] Topiramate 2 tab PO HS 06/14/20 [History] Hx Tetanus, Diphtheria Vaccination/Date Given: Yes Hx Influenza Vaccination/Date Given: Yes Hx Pneumococcal Vaccination/Date Given: Yes Immunizations Up to Date: Yes Travel Risk - International Travel Have you traveled outside of the country in past 3 weeks: No - Emerging Infectious Disease Are you exhibiting symptoms associated with any current EIDs: Yes Symptoms: Diarrhea - Review of Systems Constitutional: No Fever Respiratory: No Dyspnea Cardiac: No Chest Pain Abdominal/Gastrointestinal: Diarrhea, No Abdominal Pain, No Nausea, No Vomiting Neurological: No Headache - Past Medical History Pertinent Past Medical History: Yes Neurological History: No Pertinent History ENT History: No Pertinent History Cardiac History: Hypertension Respiratory History: Asthma, Bronchitis Endocrine Medical History: No Pertinent History Musculoskeletal History: Arthritis, Rheumatoid Arthritis GI Medical History: GERD History: No Pertinent History Psycho-Social History: Other Female Reproductive Disorders: No Pertinent History Other Medical History: pt states she has PTSD. She has stated past HTN, not medicating now- takes lasix for fluid retention. - Past Surgical History Past Surgical History: Yes Neuro Surgical History: No Pertinent History Cardiac: No Pertinent History Respiratory: Other Gastrointestinal: Appendectomy Genitourinary: No Pertinent History Musculoskeletal: Other Female Surgical History: Hysterectomy, Tubal Ligation Other Surgical History: pt has had bilateral foot correction surgery. rib surgery and skin cancer removal. 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 - Social History Smoking Status: Never smoker Exposure to second hand smoke: No Drug Use: none Patient Lives Alone: No - Social Determinants of Health Will the patient participate in the screening: Yes Do you worry about a steady place to live?: No Do you have any problems with any of the following?: No known problems In the past 12 months,have you had to go without utilities?: No Transportation Issues: No Has anyone in your support network made you feel unsafe?: No Have you or anyone in your house had to go without enough: No - Nursing Vital Signs Nursing Vital Signs: Initial Vital Signs Temperature 97.7 F 11/18/23 18:03 Pulse Rate 67 11/18/23 18:03 Respiratory Rate 19 11/18/23 18:03 Blood Pressure 138/96 11/18/23 18:03 O2 Sat by Pulse Oximetry 98 11/18/23 18:03 Pain Scale Pain Intensity 0 - Physical Exam General Appearance: alert Eye Exam: PERRL/EOMI Ears, Nose, Throat Exam: TMs normal, pharynx normal Neck Exam: normal inspection Respiratory Exam: lungs clear Cardiovascular Exam: normal heart sounds Gastrointestinal/Abdomen Exam: other (B.S. mildly hyperactive and normotonic) Extremity Exam: No pedal edema Neurologic Exam: alert, cooperative Skin Exam: warm, dry SpO2 Interpretation: normal SpO2: 98 O2 Delivery: Room Air - Course Nursing assessment & vital signs reviewed: Yes Ordered Tests: Active Orders 24 hr Category Date Time Status IV Insertion STAT Care 11/18/23 19:03 Active ABDOMEN AND PELVIS W/0 CONTRAS [CT] Stat Exams 11/18/23 19:03 Taken AMYLASE Stat Lab 11/18/23 19:12 Received CBC W DIFF Stat Lab 11/18/23 19:12 Completed CMP Stat Lab 11/18/23 19:12 Received LIPASE Stat Lab 11/18/23 19:12 Received OB-FECAL SCREEN Stat Lab 11/18/23 19:12 Completed UA W/RFX UR CULTURE Stat Lab 11/18/23 19:03 Ordered Medication Summary Generic Name Dose Route Start Last Admin Trade Name Freq PRN Reason Stop Dose Admin Sodium Chloride 1,000 mls @ 999 mls/hr 11/18/23 19:03 11/18/23 19:17 Sodium Chloride 0.9% 1000 Ml IV 11/18/23 20:03 999 mls/hr .Q1H1M STA Administration Discontinued Medications Generic Name Dose Route Start Last Admin Trade Name Freq PRN Reason Stop Dose Admin Sodium Chloride Confirm 11/18/23 19:07 Sodium Chloride 0.9% 1000 Ml Administered 11/18/23 19:08 Dose 1,000 mls @ ud .ROUTE .STK-MED ONE Sodium Chloride Confirm 06/02/24 19:15 Sodium Chloride 0.9% 1000 Ml Administered 11/18/23 19:16 Dose 1,000 mls @ .[facility] ONE Lab/Rad Data: Laboratory Result Diagrams 11/18/23 19:12 Laboratory Results 11/18/23 11/18/23 Range/Units 19:12 19:12 WBC 6.2 (4.0-10.5) x10^3/uL RBC 3.74 L (4.1-5.4) x10^6/uL Hgb 11.8 L (12.0-16.0) g/dL Hct 37.5 (35-47) % MCV 100.3 H (78-100) fL MCH 31.6 (26-32) pg MCHC 31.5 L (32-36) g/dL RDW 13.8 (11.5-14.0) % Plt Count 183 (150-450) x10^3/uL MPV 10.2 (7.5-11.0) fL Gran % 50.1 (36.0-66.0) % Immature Gran % (Auto) 0.0 (0.00-0.4) % Nucleat RBC Rel Count 0.0 (0.00-0.1) % Eos # (Auto) 0.32 (0-0.5) x10^3/uL Immature Gran # (Auto) 0.00 (0.00-0.03) x10^3u/L Absolute Lymphs (auto) 1.76 (1.0-4.6) x10^3/uL Absolute Monos (auto) 0.95 (0.0-1.3) x10^3/uL Absolute Nucleated RBC 0.00 (0.00-0.01) x10^3u/L Lymphocytes % 28.5 (24.0-44.0) % Monocytes % 15.4 H (0.0-12.0) % Eosinophils % 5.2 H (0.00-5.0) % Basophils % 0.8 (0.0-0.4) % Absolute Granulocytes 3.10 (1.4-6.9) x10^3/uL Basophils # 0.05 (0-0.4) x10^3/uL Stl Occult Blood (IFOB) POSITIVE A (NEGATIVE) - Departure Departure Disposition: Home Clinical Impression: Diarrhea Condition: Stable Critical Care Time: No Referrals: KIAN PEDRO NP [Primary Care Provider] - Follow up/PCP as directed
[2023-11-18 19:15] LABS: BASOPHIL % 0.8 % (0.0-0.4); Basophil (Absolute #) 0.05 x10^3/uL (0-0.4); Eosinophil % 5.2 % (0.00-5.0); Eosinophil (Absolute #) 0.32 x10^3/uL (0-0.5); Hematocrit 37.5 % (35-47); Hemoglobin 11.8 g/dL (12.0-16.0); Lymphocyte (Absolute #) 1.76 x10^3/uL (1.0-4.6); Lymphocytes % 28.5 % (24.0-44.0); Mean Cell Volume 100.3 fL (78-100); Mean Corpuscular Hemoglobin 31.6 pg (26-32); Mean Corpuscular Hgb Concent. 31.5 g/dL (32-36); Mean Platelet Volume 10.2 fL (7.5-11.0); Monocyte (Absolute #) 0.95 x10^3/uL (0.0-1.3); Monocytes % 15.4 % (0.0-12.0); Neutrophil % 50.1 % (36.0-66.0); Platelet Count 183 x10^3/uL (150-450); Red Blood Count 3.74 x10^6/uL (4.1-5.4); Red Cell Distribution Width 13.8 % (11.5-14.0); White Blood Count 6.2 x10^3/uL (4.0-10.5)
[2023-11-18] MEDS ORDERED: Sodium Chloride 0.9% 1000 ML 1,000 ML ONE (19:15)
[2023-11-18] MEDS: Sodium Chloride 0.9% 1000 ML 1,000 ML IV STA (19:17)
[2023-11-18 19:20] LABS: IFOB TEST RESULTS POSITIVE (NEGATIVE)
[2023-11-18 19:28] LABS: ANION GAP 12.1 MEQ/L (5-15); BILIRUBIN,TOTAL 0.4 mg/dL (0.2-1.3); Creatinine 1 0.83 mg/dL (0.52-1.04); EST GLOMERULAR FILTRATION RATE 75.8 ML/MIN; Potassium 3.7 mmol/L (3.5-5.1); Total Protein 6.8 g/dL (6.3-8.2)
--- NOTE | 2023-11-18 20:07 | XRAY ---
CLINICAL HISTORY: diarrhea; Hx abdominal cancer. COMPARISON: None. TECHNIQUE: A CT scan of the abdomen and pelvis was performed without IV contrast, Coronal and sagittal reconstructive images were also obtained. One of the following dose reduction techniques was utilized for this exam: Automated exposure control, adjustment of the mA and/or kV according to patient size, and use of iterative reconstruction. FINDINGS: Lung bases are unremarkable. The liver is normal in size without focal parenchymal abnormality. The intrahepatic biliary radicals and the bile ducts are normal. The gallbladder is normal. No pericholecystic fluid collection or radio-dense calculi in the gall bladder. The spleen, pancreas, and adrenal glands are unremarkable. A small hypodense lesion is seen within the interpolar segment of the left kidney measuring approximately 0.9 cm. Otherwise, the kidneys are unremarkable. They are normal in size and shape. No calculi or hydronephrosis is seen. The ascending colon, the transverse colon, the descending colon, visualized small bowel loops are unremarkable. Linear high-density attenuation seen along the cecum is probably related to prior surgical intervention There is no evidence of significant enlargement of the mesenteric or retroperitoneal lymph nodes. S-shaped thoracolumbar scoliosis is seen. The appendix is not identified. Pelvis: The urinary bladder is unremarkable. The rectosigmoid colon is unremarkable. The uterus is not visualized, likely surgically removed. No adnexal mass. The pelvic vasculature is unremarkable. No evidence of pelvic lymphadenopathy. Multiple pelvic phleboliths noted. IMPRESSION: 1. No significant acute abdominopelvic abnormality is noted. 2. A small hypodense lesion in the left kidney, likely cysts, too small to characterize. 3. S-shaped thoracolumbar scoliosis. Electronically Signed by: Darell Pappas MD. (11/18/2023 20:02:33 EDT)
[2023-11-18 21:28] VITALS: RESP 18
[2023-11-18 21:53] VITALS: BP 128/101; PULSE 84; O2SAT 95
== END 2023-11-18 21:58 | disposition home or self-care (01) ==
LOC: ED 17:52
DX: R19.7 Diarrhea, unspecified (principal); I10 Essential (primary) hypertension; Z79.899 Other long term (current) drug therapy
CPT/HCPCS: 36000; 36415; 74176; 80053; 82150; 83690; 85025; 87045; 87046; 87427; 96360; 99284; G0328; 82274

== ENCOUNTER 2024-08-21 07:27 | Day surgery (SDC) | payer MEDICARE, OTHER ==
--- NOTE | 2024-08-19 12:22 | HP ---
HISTORY OF PRESENT ILLNESS: The patient is a 68-year-old female who presents with a positive Cologuard. She is constipated a lot. She has to remove stool manually. She has some heartburn. She has been on some Pepcid. She is having breakthrough with that. PAST MEDICAL HISTORY: Asthma, GERD, melanoma, arthritis, migraines, depression. MEDICATIONS: Per chart. PAST SURGICAL HISTORY: Hysterectomy, skin cancer, vein stripping. FAMILY HISTORY: Parents unknown. Sister with colon cancer. SOCIAL HISTORY: Former smoker. Occasional alcohol. ALLERGIES: ROCEPHIN and CEPHALOSPORIN. REVIEW OF SYSTEMS: CONSTITUTIONAL: Denies fever or chills. CHEST: Denies shortness of breath. CARDIAC: Denies chest pain. ABDOMEN: Denies abdominal pain. PHYSICAL EXAMINATION: GENERAL: In no acute distress. CHEST: Nonlabored. No shortness of breath. CARDIAC: Regular rate and rhythm. ABDOMEN: Soft. IMPRESSION: 1) Heartburn. 2) Positive Cologuard. PLAN: EGD and colonoscopy with Dr. Carlito Marley. This report was dictated for Dr. Marley by Rena Mitchell NP.
[2024-08-21] MEDS: Lactated Ringers 1,000 ML IV SCH (07:43)
[2024-08-21] MEDS ORDERED: Amidate 20 MG/10 ML IV ONE (09:40)
[2024-08-21] MEDS ORDERED: propofoL IV ONE ×2 (09:40→10:07)
[2024-08-21] MEDS ORDERED: Xylocaine-Mpf 2% 5 Ml Vial ONE (09:40)
[2024-08-21] MEDS ORDERED: GlucaGen 1 MG ONE (10:07)
[2024-08-21] MEDS ORDERED: SUBLIMAZE 100 MCG/2 ML ONE (10:13)
[2024-08-21] MEDS ORDERED: ROBINUL ONE (10:23)
[2024-08-21] MEDS ORDERED: APRESOLINE 20 MG/ML INJ ONE (10:58)
[2024-08-21 11:35] VITALS: PULSE 86; RESP 16; O2SAT 95
[2024-08-21 11:46] VITALS: BP 143/84; TEMP 97.4
--- NOTE | 2024-08-22 13:24 | OP ---
SURGERY TIME: 08/21/2024 [id number] PREOPERATIVE DIAGNOSES: 1) Epigastric pain. 2) Problems with Cologuard. POSTOPERATIVE DIAGNOSES: 1) 1-inch hiatal hernia. 2) Grade 2/4 gastroesophageal reflux disease. FINDINGS: No mucosal lesions today. The patient did have a previous appendectomy for, I believe, cancer. PROCEDURE: 1) Colonoscopy complete to the bottom of the residual surgical field in the right colon. 2) Esophagogastroduodenoscopy. SURGEON: Carlito Marley M.D. SPINNER FIXER: Medical Student 3. ANESTHESIA: General. COMPLICATIONS: None. CONDITION: Stable. DESCRIPTION OF PROCEDURE AND FINDINGS: Patient taken to endoscopy. Left lateral decubitus position. Scope was introduced. Pharyngoesophageal junction normal. Esophagus normal. EG junction grade 2 GERD. There was a 1-inch hiatal hernia. Fundus, body, and antrum normal. Pylorus normal. Duodenal bulb normal. Second portion normal. Papillary area was seen, and it was normal. Scope withdrawn, looped upon itself, 1-inch hiatal hernia. The colonoscopic examination, anal digital examination satisfactory, rectum satisfactory, moderate internal hemorrhoids. Scope advanced to the surgical field in the right lower quadrant basically close to the bottom of the old cecum. There was one area that I felt certainly was obviously fixed maira. There were no mucosal lesions here. We did go up the ileum about 4 inches and was satisfactory. On circumferential withdrawal, no mucosal lesions were noted today despite a positive Cologuard. PLAN: Follow up 3 to 5 years.
== END 2024-08-21 11:59 | disposition home or self-care (01) ==
LOC: SDC 07:27
PROVIDERS: ATTEND Surgery
DX: K21.9 Gastro-esophageal reflux disease without esophagitis (principal); R19.5 Other fecal abnormalities; R10.13 Epigastric pain; Z80.0 Family history of malignant neoplasm of digestive organs; K44.9 Diaphragmatic hernia without obstruction or gangrene; K64.8 Other hemorrhoids; Z85.828 Personal history of other malignant neoplasm of skin
CPT/HCPCS: J0360; J1610; J2704; J3010